=== PATIENT | male | born 1970 | race Caucasian/White ===

== ENCOUNTER 2019-02-18 12:30 | Emergency (ER) | payer BC ==
[2019-02-18] MEDS ORDERED: Iopamidol 755 Mg/ML 100 ML Bottle IVPUSH ONE (13:00)
[2019-02-18] MEDS ORDERED: Aspirin 81 MG Tab.Chew PO ONE (13:01)
[2019-02-18] MEDS ORDERED: Diltiazem 25 MG/5 ML SDV IVPUSH ONE ×2 (13:25→14:18)
[2019-02-18] MEDS ORDERED: Furosemide 40 MG/4 ML VIAL IVPUSH ONE (13:47)
[2019-02-18] MEDS ORDERED: Heparin Sodium 5,000 Units/ML Vial IVPUSH ONE (13:48)
--- NOTE | 2019-02-18 13:55 | EDM.PDOC ---
ED HPI GENERAL MEDICAL PROBLEM - General Chief Complaint: Cardiovascular Problem Stated Complaint: Hypoxia, sats in 50's from clinic Time Seen by Provider: 02/18/19 12:40 Source of Information: Reports: Patient, Family (7) History Limitations: Reports: Altered Mental Status, Physical Impairment ( Weight 375 pounds) - History of Present Illness INITIAL COMMENTS - FREE TEXT/NARRATIVE: Patient was transferred from the clinic to the ER secondary to not feeling well for about a week and a half to 2 patient's had sinusitis and was hypoxic in the clinic running saturations around 50 at that time they felt that he needed to be seen in the ER and transferred to the ER at this time patient was hypoxic somewhat confused he was placed on 100% rebreather patient in for evaluation and treatment Onset: Gradual Duration: Week(s):, Getting Worse Location: Reports: Chest Quality: Reports: Ache Severity: Moderate Improves with: Reports: None Worsens with: Reports: None Context: Reports: Other (Interval) Associated Symptoms: Reports: Confusion, Diaphoresis, Fever/Chills (Low-grade 100.7) Right Hip Pain Score (Numeric/FACES): 6 - Related Data Allergies Allergy/AdvReac Type Severity Reaction Status Date / Time apixaban [From Eliquis] Allergy Tachycardia Verified 02/18/19 12:32 rivaroxaban [From Xarelto] Allergy Tachycardia Verified 02/18/19 12:32 Home Meds: Home Meds Furosemide [Lasix] 20 mg PO DAILY 06/02/15 [History] Metoprolol Succinate [Toprol XL 50mg] 100 mg PO DAILY 06/02/15 [History] atorvaSTATin [Lipitor] 20 mg PO BEDTIME 06/02/15 [History] dilTIAZem HCl [Diltiazem 24Hr ER (Cd)] 180 mg PO DAILY 06/02/15 [History] traMADol [Ultram] 1 - 2 tab PO Q6H PRN 02/18/19 [History] Past Medical History Cardiovascular History: Reports: Blood Clots/VTE/DVT, High Cholesterol, Hypertension Other Respiratory History: Questioning possible pneumonia by provider Other Musculoskeletal History: C/o pain in the left foot, chronic-pain well managed - Past Surgical History Other HEENT Surgeries/Procedures: T&A, wisdom teeth removal Social & Family History - Tobacco Use Smoking Status *Q: Current Every Day Smoker Years of Tobacco use: 30 Packs/Tins Daily: 1 ED ROS GENERAL - Review of Systems Review Of Systems: See Below Constitutional: Reports: Weakness, Fatigue, Diaphoresis HEENT: Reports: No Symptoms Respiratory: Reports: Shortness of Breath, Wheezing ( with some wheezing), Other (Decreased breath sounds bilaterally left worse than right) Cardiovascular: Reports: Blood Pressure Problem, Lightheadedness, Palpitations ( Tachycardic) Endocrine: Reports: No Symptoms GI/Abdominal: Reports: No Symptoms : Reports: No Symptoms Musculoskeletal: Reports: No Symptoms Skin: Reports: Diaphoresis Neurological: Reports: Confusion Psychiatric: Reports: Anxiety, Confusion Hematologic/Lymphatic: Reports: No Symptoms Immunologic: Reports: No Symptoms ED EXAM, GENERAL - Physical Exam Exam: See Below Exam Limited By: Altered Mental Status General Appearance: Obese Ears: Normal External Exam, Normal Canal, Hearing Grossly Normal, Normal TMs Nose: Nasal Tenderness, Nasal Drainage Throat/Mouth: Normal Inspection, Normal Lips, Normal Teeth, Normal Gums, Normal Oropharynx, Normal Voice, No Airway Compromise Head: Atraumatic, Normocephalic Neck: Limited Range of Motion Respiratory/Chest: Decreased Breath Sounds (Left side decreased breath sounds), Rales (Right greater than left), Wheezing, Prolonged Expiration (Prolonged expiratory wheeze CT of chest reveal multi focal pneumonia no DVT) Cardiovascular: Normal Peripheral Pulses, Regular Rate, Rhythm, No Edema, No Gallop, No JVD, No Murmur, No Rub GI/Abdominal: Normal Bowel Sounds, Soft, Non-Tender, No Organomegaly, No Distention, No Abnormal Bruit, No Mass (Male) Exam: Scrotal Swelling, Other (Alfaro catheter placed) Rectal (Males) Exam: Deferred Back Exam: Decreased Range of Motion Extremities: Limited Range of Motion Neurological: Confused, Disoriented (On arrival) Skin Exam: Warm, Dry, Intact, Normal Color, No Rash Course - Vital Signs Last Recorded V/S: Last Vital Signs Temp 100.7 F H 02/18/19 12:30 Pulse 127 H 02/18/19 12:30 Resp 19 02/18/19 13:18 BP 167/109 H 02/18/19 13:18 Pulse Ox 87 L 02/18/19 13:18 - Orders/Labs/Meds Orders: Active Orders 24 hr Category Date Time Status Ang Chest [CT] Stat Exams 02/18/19 12:50 Ordered ABG [BLOOD GAS ARTERIAL] [BG] Routine Lab 02/18/19 13:49 Ordered CULTURE BLOOD [BC] Stat Lab 02/18/19 13:01 Ordered CULTURE BLOOD [BC] Stat Lab 02/18/19 13:01 Ordered Blood Culture x2 Reflex Set [OM.PC] Stat Oth 02/18/19 13:00 Ordered Blood Culture x2 Reflex Set [OM.PC] Stat Oth 02/18/19 13:10 Ordered Labs: Laboratory Tests 02/18/19 02/18/19 02/18/19 Range/Units 12:01 12:49 12:49 WBC 10.5 H (4.0-10.2) K/uL RBC 6.18 H (4.33-5.41) M/uL Hgb 17.4 H D (13.1-16.8) g/dL Hct 58.2 H (39.0-49.0) % MCV 94.2 (84.0-98.0) fL MCH 28.2 (28.2-33.3) pg MCHC 29.9 L (31.7-36.0) g/dL RDW 18.6 H (11.2-14.1) % Plt Count 282 (150-350) K/uL Neut % (Auto) 74.9 (45.0-80.0) % Lymph % (Auto) 13.8 (10.0-50.0) % [place] % (Auto) 9.8 (2.0-14.0) % Eos % (Auto) 1.0 (0.0-5.0) % Baso % (Auto) 0.5 (0.0-2.0) % Neut # (Auto) 7.84 H (1.40-7.00) K/uL Lymph # (Auto) 1.45 (0.50-3.50) K/uL [place] # (Auto) 1.03 H (0.00-1.00) K/uL Eos # (Auto) 0.11 (0.00-0.50) K/uL Baso # (Auto) 0.05 (0.00-0.20) K/uL PT (9.5-12.0) SEC INR D-Dimer, Quantitative 468 H (0-400) ng/mL Sodium (136-145) mmol/L Potassium (3.5-5.1) mmol/L Chloride (98-107) mmol/L Carbon Dioxide (21.0-32.0) mmol/L BUN (7-18) mg/dL Creatinine (0.51-1.17) mg/dL Est Cr Clr Drug Dosing mL/min Estimated GFR (MDRD) mL/min Glucose (74-106) mg/dL Lactic Acid 2.8 H (0.4-2.0) mmol/L Calcium (8.5-10.1) mg/dL Total Bilirubin (0.2-1.0) mg/dL AST (15-37) U/L ALT (12-78) U/L Alkaline Phosphatase (46-116) IU/L Troponin I (0.000-0.056) ng/mL NT-Pro-B Natriuret Pep (0-125) pg/mL Total Protein (6.4-8.2) g/dL Albumin (3.4-5.0) g/dL 02/18/19 02/18/19 Range/Units 12:49 13:01 WBC (4.0-10.2) K/uL RBC (4.33-5.41) M/uL Hgb (13.1-16.8) g/dL Hct (39.0-49.0) % MCV (84.0-98.0) fL MCH (28.2-33.3) pg MCHC (31.7-36.0) g/dL RDW (11.2-14.1) % Plt Count (150-350) K/uL Neut % (Auto) (45.0-80.0) % Lymph % (Auto) (10.0-50.0) % [place] % (Auto) (2.0-14.0) % Eos % (Auto) (0.0-5.0) % Baso % (Auto) (0.0-2.0) % Neut # (Auto) (1.40-7.00) K/uL Lymph # (Auto) (0.50-3.50) K/uL [place] # (Auto) (0.00-1.00) K/uL Eos # (Auto) (0.00-0.50) K/uL Baso # (Auto) (0.00-0.20) K/uL PT 13.3 H (9.5-12.0) SEC INR 1.2 D-Dimer, Quantitative (0-400) ng/mL Sodium 140 (136-145) mmol/L Potassium 4.2 (3.5-5.1) mmol/L Chloride 102 (98-107) mmol/L Carbon Dioxide 33.3 H (21.0-32.0) mmol/L BUN 26 H (7-18) mg/dL Creatinine 1.36 H (0.51-1.17) mg/dL Est Cr Clr Drug Dosing 70.75 mL/min Estimated GFR (MDRD) 56 mL/min Glucose 117 H (74-106) mg/dL Lactic Acid (0.4-2.0) mmol/L Calcium 8.5 (8.5-10.1) mg/dL Total Bilirubin 2.1 H (0.2-1.0) mg/dL AST 25 (15-37) U/L ALT 34 (12-78) U/L Alkaline Phosphatase 92 (46-116) IU/L Troponin I 0.034 (0.000-0.056) ng/mL NT-Pro-B Natriuret Pep 3868 H (0-125) pg/mL Total Protein 6.8 (6.4-8.2) g/dL Albumin 2.8 L (3.4-5.0) g/dL Meds: Medications Discontinued Medications Generic Name Dose Route Start Last Admin Trade Name Abdullahiq PRN Reason Stop Dose Admin Aspirin 324 mg 02/18/19 13:01 02/18/19 13:38 Aspirin PO 02/18/19 13:02 324 mg ONETIME ONE Administration Diltiazem HCl 20 mg 02/18/19 13:25 02/18/19 13:38 Diltiazem IVPUSH 02/18/19 13:26 20 mg ONETIME ONE Administration Furosemide 40 mg 02/18/19 13:47 Lasix IVPUSH 02/18/19 13:48 NOW ONE Heparin Sodium (Porcine) 5,000 units 02/18/19 13:48 Heparin Sodium IVPUSH 02/18/19 13:49 ONETIME ONE Iopamidol 100 ml 02/18/19 13:00 Isovue-370 (76%) IVPUSH 02/18/19 13:01 ONETIME ONE Departure - Departure Time of Disposition: 15:14 Disposition: DC/Tfer to Acute Hospital 02 Reason for Transfer *Q: Other (Pneumonia pneumonia pneumonia pneumonia) Condition: Serious Clinical Impression: Tachycardia, Palpitations, Obesities, morbid, Multifocal pneumonia Referrals: Nara Lozoya PA [Primary Care Provider] - Care Plan Goals: ED HPI GENERAL MEDICAL PROBLEM - General Chief Complaint: Cardiovascular Problem Stated Complaint: Hypoxia, sats in 50's from clinic Time Seen by Provider: 02/18/19 12:40 Source of Information: Reports: Patient, Family (7) History Limitations: Reports: Altered Mental Status, Physical Impairment ( Weight 375 pounds) - History of Present Illness INITIAL COMMENTS - FREE TEXT/NARRATIVE: Patient was transferred from the clinic to the ER secondary to not feeling well for about a week and a half to 2 patient's had sinusitis and was hypoxic in the clinic running saturations around 50 at that time they felt that he needed to be seen in the ER and transferred to the ER at this time patient was hypoxic somewhat confused he was placed on 100% rebreather patient in for evaluation and treatment Onset: Gradual Duration: Week(s):, Getting Worse Location: Reports: Chest Quality: Reports: Ache Severity: Moderate Improves with: Reports: None Worsens with: Reports: None Context: Reports: Other (Interval) Associated Symptoms: Reports: Confusion, Diaphoresis, Fever/Chills (Low-grade 100.7) Right Hip Pain Score (Numeric/FACES): 6 - Related Data Allergies Allergy/AdvReac Type Severity Reaction Status Date / Time apixaban [From Eliquis] Allergy Tachycardia Verified 02/18/19 12:32 rivaroxaban [From Xarelto] Allergy Tachycardia Verified 02/18/19 12:32 Home Meds: Home Meds Furosemide [Lasix] 20 mg PO DAILY 06/02/15 [History] Metoprolol Succinate [Toprol XL 50mg] 100 mg PO DAILY 06/02/15 [History] atorvaSTATin [Lipitor] 20 mg PO BEDTIME 06/02/15 [History] dilTIAZem HCl [Diltiazem 24Hr ER (Cd)] 180 mg PO DAILY 06/02/15 [History] traMADol [Ultram] 1 - 2 tab PO Q6H PRN 05/14/19 [History] Past Medical History Cardiovascular History: Reports: Blood Clots/VTE/DVT, High Cholesterol, Hypertension Other Respiratory History: Questioning possible pneumonia by provider Other Musculoskeletal History: C/o pain in the left foot, chronic-pain well managed - Past Surgical History Other HEENT Surgeries/Procedures: T&A, wisdom teeth removal Social & Family History - Tobacco Use Smoking Status *Q: Current Every Day Smoker Years of Tobacco use: 30 Packs/Tins Daily: 1 ED ROS GENERAL - Review of Systems Review Of Systems: See Below Constitutional: Reports: Weakness, Fatigue, Diaphoresis HEENT: Reports: No Symptoms Respiratory: Reports: Shortness of Breath, Wheezing ( with some wheezing), Other (Decreased breath sounds bilaterally left worse than right) Cardiovascular: Reports: Blood Pressure Problem, Lightheadedness, Palpitations ( Tachycardic) Endocrine: Reports: No Symptoms GI/Abdominal: Reports: No Symptoms : Reports: No Symptoms Musculoskeletal: Reports: No Symptoms Skin: Reports: Diaphoresis Neurological: Reports: Confusion Psychiatric: Reports: Anxiety, Confusion Hematologic/Lymphatic: Reports: No Symptoms Immunologic: Reports: No Symptoms ED EXAM, GENERAL - Physical Exam Exam Limited By: Altered Mental Status General Appearance: Obese Ears: Normal External Exam, Normal Canal, Hearing Grossly Normal, Normal TMs Nose: Nasal Tenderness, Nasal Drainage Throat/Mouth: Normal Inspection, Normal Lips, Normal Teeth, Normal Gums, Normal Oropharynx, Normal Voice, No Airway Compromise Head: Atraumatic, Normocephalic Neck: Limited Range of Motion Respiratory/Chest: Decreased Breath Sounds (Left side decreased breath sounds), Rales (Right greater than left), Wheezing, Prolonged Expiration (Prolonged expiratory wheeze CT of chest reveal multi focal pneumonia no DVT) Cardiovascular: Normal Peripheral Pulses, Regular Rate, Rhythm, No Edema, No Gallop, No JVD, No Murmur, No Rub GI/Abdominal: Normal Bowel Sounds, Soft, Non-Tender, No Organomegaly, No Distention, No Abnormal Bruit, No Mass (Male) Exam: Scrotal Swelling, Other (Alfaro catheter placed) Rectal (Males) Exam: Deferred Back Exam: Decreased Range of Motion Extremities: Limited Range of Motion Neurological: Confused, Disoriented (On arrival) Skin Exam: Warm, Dry, Intact, Normal Color, No Rash Course - Vital Signs Last Recorded V/S: Last Vital Signs Temp 100.7 F H 05/14/19 12:30 Pulse 127 H 02/18/19 12:30 Resp 19 02/18/19 13:18 BP 167/109 H 02/18/19 13:18 Pulse Ox 87 L 02/18/19 13:18 - Orders/Labs/Meds Orders: Active Orders 24 hr Category Date Time Status Ang Chest [CT] Stat Exams 02/18/19 12:50 Ordered ABG [BLOOD GAS ARTERIAL] [BG] Routine Lab 02/18/19 13:49 Ordered CULTURE BLOOD [BC] Stat Lab 02/18/19 13:01 Ordered CULTURE BLOOD [BC] Stat Lab 02/18/19 13:01 Ordered Blood Culture x2 Reflex Set [OM.PC] Stat Oth 02/18/19 13:00 Ordered Blood Culture x2 Reflex Set [OM.PC] Stat Oth 02/18/19 13:10 Ordered Labs: Laboratory Tests 02/18/19 02/18/19 02/18/19 Range/Units 12:01 12:49 12:49 WBC 10.5 H (4.0-10.2) K/uL RBC 6.18 H (4.33-5.41) M/uL Hgb 17.4 H D (13.1-16.8) g/dL Hct 58.2 H (39.0-49.0) % MCV 94.2 (84.0-98.0) fL MCH 28.2 (28.2-33.3) pg MCHC 29.9 L (31.7-36.0) g/dL RDW 18.6 H (11.2-14.1) % Plt Count 282 (150-350) K/uL Neut % (Auto) 74.9 (45.0-80.0) % Lymph % (Auto) 13.8 (10.0-50.0) % [place] % (Auto) 9.8 (2.0-14.0) % Eos % (Auto) 1.0 (0.0-5.0) % Baso % (Auto) 0.5 (0.0-2.0) % Neut # (Auto) 7.84 H (1.40-7.00) K/uL Lymph # (Auto) 1.45 (0.50-3.50) K/uL [place] # (Auto) 1.03 H (0.00-1.00) K/uL Eos # (Auto) 0.11 (0.00-0.50) K/uL Baso # (Auto) 0.05 (0.00-0.20) K/uL PT (9.5-12.0) SEC INR D-Dimer, Quantitative 468 H (0-400) ng/mL Sodium (136-145) mmol/L Potassium (3.5-5.1) mmol/L Chloride (98-107) mmol/L Carbon Dioxide (21.0-32.0) mmol/L BUN (7-18) mg/dL Creatinine (0.51-1.17) mg/dL Est Cr Clr Drug Dosing mL/min Estimated GFR (MDRD) mL/min Glucose (74-106) mg/dL Lactic Acid 2.8 H (0.4-2.0) mmol/L Calcium (8.5-10.1) mg/dL Total Bilirubin (0.2-1.0) mg/dL AST (15-37) U/L ALT (12-78) U/L Alkaline Phosphatase (46-116) IU/L Troponin I (0.000-0.056) ng/mL NT-Pro-B Natriuret Pep (0-125) pg/mL Total Protein (6.4-8.2) g/dL Albumin (3.4-5.0) g/dL 02/18/19 02/18/19 Range/Units 12:49 13:01 WBC (4.0-10.2) K/uL RBC (4.33-5.41) M/uL Hgb (13.1-16.8) g/dL Hct (39.0-49.0) % MCV (84.0-98.0) fL MCH (28.2-33.3) pg MCHC (31.7-36.0) g/dL RDW (11.2-14.1) % Plt Count (150-350) K/uL Neut % (Auto) (45.0-80.0) % Lymph % (Auto) (10.0-50.0) % [place] % (Auto) (2.0-14.0) % Eos % (Auto) (0.0-5.0) % Baso % (Auto) (0.0-2.0) % Neut # (Auto) (1.40-7.00) K/uL Lymph # (Auto) (0.50-3.50) K/uL [place] # (Auto) (0.00-1.00) K/uL Eos # (Auto) (0.00-0.50) K/uL Baso # (Auto) (0.00-0.20) K/uL PT 13.3 H (9.5-12.0) SEC INR 1.2 D-Dimer, Quantitative (0-400) ng/mL Sodium 140 (136-145) mmol/L Potassium 4.2 (3.5-5.1) mmol/L Chloride 102 (98-107) mmol/L Carbon Dioxide 33.3 H (21.0-32.0) mmol/L BUN 26 H (7-18) mg/dL Creatinine 1.36 H (0.51-1.17) mg/dL Est Cr Clr Drug Dosing 70.75 mL/min Estimated GFR (MDRD) 56 mL/min Glucose 117 H (74-106) mg/dL Lactic Acid (0.4-2.0) mmol/L Calcium 8.5 (8.5-10.1) mg/dL Total Bilirubin 2.1 H (0.2-1.0) mg/dL AST 25 (15-37) U/L ALT 34 (12-78) U/L Alkaline Phosphatase 92 (46-116) IU/L Troponin I 0.034 (0.000-0.056) ng/mL NT-Pro-B Natriuret Pep 3868 H (0-125) pg/mL Total Protein 6.8 (6.4-8.2) g/dL Albumin 2.8 L (3.4-5.0) g/dL Meds: Medications Discontinued Medications Generic Name Dose Route Start Last Admin Trade Name Freq PRN Reason Stop Dose Admin Aspirin 324 mg 02/18/19 13:01 02/18/19 13:38 Aspirin PO 02/18/19 13:02 324 mg ONETIME ONE Administration Diltiazem HCl 20 mg 02/18/19 13:25 02/18/19 13:38 Diltiazem IVPUSH 02/18/19 13:26 20 mg ONETIME ONE Administration Furosemide 40 mg 02/18/19 13:47 Lasix IVPUSH 02/18/19 13:48 NOW ONE Heparin Sodium (Porcine) 5,000 units 02/18/19 13:48 Heparin Sodium IVPUSH 02/18/19 13:49 ONETIME ONE Iopamidol 100 ml 02/18/19 13:00 Isovue-370 (76%) IVPUSH 02/18/19 13:01 ONETIME ONE Departure - Departure Disposition: DC/Tfer to Acute Hospital 02 Preliminary Cause of *Q: Sepsis & Multi System Organ Failure Clinical Impression: Tachycardia, Palpitations, Obesities, morbid, Multifocal pneumonia Referrals: Nara Lozoya PA [Primary Care Provider] - - My Orders Last 24 Hours: My Active Orders 02/18/19 12:50 Ang Chest [CT] Stat 02/18/19 13:00 Blood Culture x2 Reflex Set [OM.PC] Stat 02/18/19 13:01 CULTURE BLOOD [BC] Stat CULTURE BLOOD [BC] Stat 02/18/19 13:10 Blood Culture x2 Reflex Set [OM.PC] Stat 02/18/19 13:49 ABG [BLOOD GAS ARTERIAL] [BG] Routine - Assessment/Plan Last 24 Hours: My Active Orders 02/18/19 12:50 Ang Chest [CT] Stat 02/18/19 13:00 Blood Culture x2 Reflex Set [OM.PC] Stat 02/18/19 13:01 CULTURE BLOOD [BC] Stat CULTURE BLOOD [BC] Stat 02/18/19 13:10 Blood Culture x2 Reflex Set [OM.PC] Stat 02/18/19 13:49 ABG [BLOOD GAS ARTERIAL] [BG] Routine Patient was stabilized in the ER placed on 100% rebreather at this time CT of the chest was done revealed no PE I went ahead and discussed transfer with patient spoke with dr. diez at [place] and will transfer to ICU. Prior to departure patient was given Lasix 40 mg +5000 units of heparin diltiazem 20 mg follow 25-hour later for to control rate and improve cardiac output Alfaro placed at this time I thought about intubating a sense patient is not in distress I think attempt at intubation at this time would be worse than transfer him. - My Orders Last 24 Hours: My Active Orders 02/18/19 12:50 Ang Chest [CT] Stat 02/18/19 13:00 Blood Culture x2 Reflex Set [OM.PC] Stat 02/18/19 13:01 CULTURE BLOOD [BC] Stat CULTURE BLOOD [BC] Stat 02/18/19 13:10 Blood Culture x2 Reflex Set [OM.PC] Stat 02/18/19 13:49 ABG [BLOOD GAS ARTERIAL] [BG] Routine - Assessment/Plan Last 24 Hours: My Active Orders 02/18/19 12:50 Ang Chest [CT] Stat 02/18/19 13:00 Blood Culture x2 Reflex Set [OM.PC] Stat 02/18/19 13:01 CULTURE BLOOD [BC] Stat CULTURE BLOOD [BC] Stat 02/18/19 13:10 Blood Culture x2 Reflex Set [OM.PC] Stat 02/18/19 13:49 ABG [BLOOD GAS ARTERIAL] [BG] Routine
[2019-02-18] MEDS ORDERED: Levofloxacin/Dextrose 5%-Water 750 MG in Premix Bag 1 BAG IV ONE (14:04)
[2019-02-18] MEDS ORDERED: Piperacillin/Tazobactam 4.5 GM in Sodium Chloride 0.9% 100 ML IV SCH (14:15)
[2019-02-18 15:03] VITALS: BP 121/88
== END 2019-02-18 15:40 ==
LOC: LL.ED 12:30
DX: J18.9 Pneumonia, unspecified organism (principal); R00.2 Palpitations; R00.0 Tachycardia, unspecified; I10 Essential (primary) hypertension; E66.01 Morbid (severe) obesity due to excess calories; F17.210 Nicotine dependence, cigarettes, uncomplicated; Z79.899 Other long term (current) drug therapy; Z88.8 Allergy status to other drugs, medicaments and biological substances
CPT/HCPCS: 36415; 51702; 71275; 80053; 83605; 83880; 84484; 85025; 85379; 85610; 87040; 96365; 96368; 96375; 96376; 99285-25; A4217; A9270-GY; J1644; J1940; J1956; J2543; J3490; J7050; Q9967

== ENCOUNTER 2019-06-11 13:34 | Inpatient (IN) | payer BC ==
[2019-06-11] MEDS ORDERED: Albuterol/Ipratropium 3.0-0.5 MG/3 ML Neb Soln NEB ONE (13:37)
[2019-06-11] MEDS ORDERED: methylPREDNISolone Sodium Succinate 125 MG/2 ML SDV IVPUSH ONE ×3 (13:37→22:00)
[2019-06-11] MEDS: Sodium Chloride 0.9% 10 ML Syringe FLUSH PRN ×5 (13:54→21:34)
[2019-06-11 14:05] LABS: O2 DELIVERY DEVICE ROOM AIR; O2 SATURATION ARTERIAL 82 % (95-98); PCO2 ARTERIAL 41 mmHG (35-45); PO2 ARTERIAL 44 mmHG (80-105)
[2019-06-11 14:06] LABS: BASE EXCESS ARTERIAL 4 mmol/L (-2-3); BICARBONATE,ARTERIAL 28.5 mmol/L (22-26)
[2019-06-11] MEDS ORDERED: Iopamidol 612 MG/ML 100 ML Bottle IVPUSH ONE (14:52)
[2019-06-11] MEDS ORDERED: Acetaminophen 325 MG Tab PO PRN (16:52)
[2019-06-11] MEDS ORDERED: Ibuprofen 600 MG Tab PO PRN (16:52)
[2019-06-11] MEDS ORDERED: Ondansetron 4 MG Tab.DIS PO PRN (16:52)
[2019-06-11] MEDS ORDERED: Ondansetron 4 MG/2 ML SDV IVPUSH PRN (16:52)
[2019-06-11] MEDS ORDERED: Albuterol 0.083% 2.5 MG/3 ML Neb Soln NEB PRN (16:59)
--- NOTE | 2019-06-11 17:13 | EDM.PDOC ---
ED HPI GENERAL MEDICAL PROBLEM - General Chief Complaint: Respiratory Problem Stated Complaint: shortness of breath Time Seen by Provider: 06/11/19 14:05 Source of Information: Reports: Patient, Provider History Limitations: Reports: No Limitations - History of Present Illness INITIAL COMMENTS - FREE TEXT/NARRATIVE: Patient sent [place] [facility] [place] of reactive airway disease exacerbation/COPD that has not improved despite neb treatments at home in addition to oral Prednisone. Patient reports having symptoms begin about two weeks ago. No obvious viral/infectious trigger. Patient thought that environmental allergies may have been initiating event. He denies fever/ chills. Has nonproductive cough. Wheezing, SOB with activity. No other changes. Smoked one year many years ago. Patient had similar episode last February that ultimately led to respiratory failure and transfer to [facility] where he required intubation and ICU care. Treatments [employer]ER: Reports: Breathing Treatments, NSAIDS - Related Data Allergies Allergy/AdvReac Type Severity Reaction Status Date / Time apixaban [From Eliquis] Allergy Tachycardia Verified 06/11/19 13:52 rivaroxaban [From Xarelto] Allergy Tachycardia Verified 06/11/19 13:52 Home Meds: Home Meds Furosemide [Lasix] 40 mg PO DAILY 06/02/15 [History] atorvaSTATin [Lipitor] 20 mg PO BEDTIME 06/02/15 [History] Aspirin [Halfprin] 1 tab PO DAILY 06/11/19 [History] Budesonide [Pulmicort] 2 ml INH DAILY 06/11/19 [History] Cetirizine [ZyrTEC] 1 tab PO DAILY 06/11/19 [History] Cholecalciferol (Vitamin D3) [Vitamin D3] 2 tab PO DAILY 06/11/19 [History] Ipratropium/Albuterol Sulfate [Iprat-Albut 0.5-3(2.5) MG/3 ML] 3 ml INH DAILY [History] Melatonin 6 mg PO BEDTIME 06/11/19 [History] Metoprolol Tartrate 100 mg PO BID 06/11/19 [History] Omeprazole 20 mg PO DAILY 06/11/19 [History] Past Medical History Cardiovascular History: Reports: Blood Clots/VTE/DVT, High Cholesterol, Hypertension, Pulmonary Hypertension Respiratory History: Reports: COPD, Intubation, Previous (due to acute respiratory failure) Gastrointestinal History: Reports: GERD, Other (See Below) (ileus) Musculoskeletal History: Reports: Osteoarthritis Other Musculoskeletal History: C/o pain in the left foot, chronic-pain well managed - Past Surgical History Other HEENT Surgeries/Procedures: T&A, wisdom teeth removal Social & Family History - Tobacco Use Smoking Status *Q: Former Smoker (Smoked one year when young, then subsequently quit) - Caffeine Use Caffeine Use: Reports: Coffee, Soda Other Caffeine Use: pop- 3x/day, coffee 12 cups per day - Alcohol Use Alcohol Use History: Yes Alcohol Use Frequency: Weekly - Recreational Drug Use Recreational Drug Use: No ED ROS GENERAL - Review of Systems Review Of Systems: See Below Constitutional: Reports: Fatigue (when walking). Denies: Fever, Chills, Weakness, Night Sweats, Diaphoresis, Decreased Appetite, Weight Loss, Weight Gain HEENT: Reports: No Symptoms Respiratory: Reports: Shortness of Breath, Wheezing, Cough. Denies: Pleuritic Chest Pain, Sputum, Hemoptysis Cardiovascular: Reports: Dyspnea on Exertion, Edema (chronic). Denies: Chest Pain, Lightheadedness, Syncope GI/Abdominal: Reports: No Symptoms : Reports: No Symptoms Musculoskeletal: Reports: Other (no acute changes from baseline) Skin: Reports: Other (has some chronic discoloration lower extremities from chronic edema) Neurological: Reports: No Symptoms Psychiatric: Reports: No Symptoms ED EXAM, GENERAL - Physical Exam Exam: See Below Exam Limited By: No Limitations General Appearance: Alert, No Apparent Distress, Obese Eye Exam: Bilateral Eye: EOMI, PERRL Ears: Normal External Exam Nose: No: Nasal Deformity, Nasal Swelling, Nasal Drainage Throat/Mouth: Normal Lips, Normal Voice, No Airway Compromise Head: Atraumatic, Normocephalic Neck: Supple, Full Range of Motion Respiratory/Chest: No Respiratory Distress, Wheezing (bilaterally). No: Crackles, Rales Cardiovascular: Normal Peripheral Pulses, Regular Rate, Rhythm, No Murmur Peripheral Pulses: 2+: Radial (L), Radial (R) GI/Abdominal: Normal Bowel Sounds, Soft, Non-Tender, No Distention (Male) Exam: Deferred Rectal (Males) Exam: Deferred Back Exam: No: CVA Tenderness (L), CVA Tenderness (R), Muscle Spasm, Paraspinal Tenderness, Vertebral Tenderness Extremities: Non-Tender, Normal Capillary Refill, Pedal Edema. No: Matias's Sign Neurological: Alert, Oriented, Normal Cognition, No Motor/Sensory Deficits Psychiatric: Normal Affect, Normal Mood Skin Exam: Warm, Dry, Intact. No: Mottled, Pallor Course - Vital Signs Last Recorded V/S: Last Vital Signs Temp 36.8 C 06/11/19 13:45 Pulse 73 06/11/19 14:30 Resp 18 06/11/19 14:30 BP 140/91 H 06/11/19 14:30 Pulse Ox 93 L 06/11/19 16:15 - Orders/Labs/Meds Orders: Active Orders 24 hr Category Date Time Status RT Aerosol Therapy [RC] ASDIRECTED Care 06/11/19 13:37 Active Chest w Cont [CT] Stat Exams 06/11/19 14:49 Taken Sodium Chloride 0.9% [Saline Flush] Med 06/11/19 13:38 Active 10 ml FLUSH ASDIRECTED PRN Saline Lock Insert [OM.PC] Routine Oth 06/11/19 13:38 Ordered Medication Orders Acetaminophen (Tylenol) 650 mg PO Q4H PRN PRN Reason: Pain (Mild 1-3)/fever Albuterol (Proventil Neb Soln) 2.5 mg NEB Q2H PRN PRN Reason: Shortness of Breath Albuterol/Ipratropium (Duoneb 3.0-0.5 Mg/3 Ml) 3 ml NEB Q4HRRT [facility] Enoxaparin Sodium (Lovenox) 40 mg SUBCUT DAILY [facility] Azithromycin 500 mg/ Sodium (Chloride) 250 mls @ 250 mls/hr IV Q24H [facility] Ibuprofen (Motrin) 600 mg PO Q6H PRN PRN Reason: Pain (mild 1-3) Methylprednisolone Sodium Succinate (Solu-Medrol) 125 mg IVPUSH DAILY [facility] Methylprednisolone Sodium Succinate (Solu-Medrol) 125 mg IVPUSH ONETIME ONE Stop: 06/11/19 22:01 Methylprednisolone Sodium Succinate (Solu-Medrol) 125 mg IVPUSH ONETIME ONE Stop: 06/11/19 22:01 Ondansetron HCl (Zofran Odt) 4 mg PO Q6H PRN PRN Reason: Nausea/Vomiting Ondansetron HCl (Zofran) 4 mg IVPUSH Q6H PRN PRN Reason: Nausea/Vomiting Sodium Chloride (Saline Flush) 10 ml FLUSH ASDIRECTED PRN PRN Reason: Keep Vein Open Last Admin: 06/11/19 13:54 Dose: 10 ml Labs: Laboratory Tests 06/11/19 06/11/19 06/11/19 Range/Units 12:42 12:42 14:00 ABG pH 7.45 (7.35-7.45) ABG pCO2 41 (35-45) mmHG ABG pO2 44 L* (80-105) mmHG ABG HCO3 28.5 H (22-26) mmol/L ABG Total CO2 30 H (23-27) mmol/L ABG O2 Saturation 82 L (95-98) % ABG Base Excess 4 H (-2-3) mmol/L O2 Delivery Device Room air Lactic Acid 1.8 (0.4-2.0) mmol/L Magnesium 1.8 (1.8-2.4) mg/dL Meds: Medications Generic Name Dose Route Start Last Admin Trade Name Freq PRN Reason Stop Dose Admin Acetaminophen 650 mg 06/11/19 16:52 Tylenol PO Q4H PRN Pain (Mild 1-3)/fever Albuterol 2.5 mg 06/11/19 16:59 Proventil Neb Soln NEB Q2H PRN Shortness of Breath Albuterol/Ipratropium 3 ml 06/11/19 20:00 Duoneb 3.0-0.5 Mg/3 Ml NEB Q4HRRT [facility] Enoxaparin Sodium 40 mg 06/12/19 08:00 Lovenox SUBCUT DAILY [facility] Azithromycin 500 mg/ Sodium 250 mls @ 250 mls/hr 06/11/19 17:00 Chloride IV Q24H [facility] Ibuprofen 600 mg 06/11/19 16:52 Motrin PO Q6H PRN Pain (mild 1-3) Methylprednisolone Sodium Succinate 125 mg 06/12/19 08:00 Solu-Medrol IVPUSH DAILY [facility] Methylprednisolone Sodium Succinate 125 mg 06/11/19 22:00 Solu-Medrol IVPUSH 06/11/19 22:01 ONETIME ONE Methylprednisolone Sodium Succinate 125 mg 06/11/19 22:00 Solu-Medrol IVPUSH 06/11/19 22:01 ONETIME ONE Ondansetron HCl 4 mg 06/11/19 16:52 Zofran Odt PO Q6H PRN Nausea/Vomiting Ondansetron HCl 4 mg 06/11/19 16:52 Zofran IVPUSH Q6H PRN Nausea/Vomiting Sodium Chloride 10 ml 06/11/19 13:38 06/11/19 13:54 Saline Flush FLUSH 10 ml ASDIRECTED PRN Administration Keep Vein Open Discontinued Medications Generic Name Dose Route Start Last Admin Trade Name Freq PRN Reason Stop Dose Admin Albuterol/Ipratropium 3 ml 06/11/19 13:37 06/11/19 13:54 Duoneb 3.0-0.5 Mg/3 Ml NEB 06/11/19 13:38 3 ml ONETIME ONE Administration Iopamidol 100 ml 06/11/19 14:52 06/11/19 15:52 Isovue-300 (61%) IVPUSH 06/11/19 14:53 100 ml ONETIME ONE Administration Methylprednisolone Sodium Succinate 125 mg 06/11/19 13:37 06/11/19 13:54 Solu-Medrol IVPUSH 06/11/19 13:38 125 mg ONETIME ONE Administration - Radiology Interpretation Free Text/Narrative:: Xray taken by clinic showed changes consistent with COPD/atelectasis but no obvious new infiltrate noted. Review of patient's CT report from February showed that diffuse changes/pneumonias noted at that time and recommended second CT be performed within 2-3 months to make certain these findings had cleared. CT of chest ordered. Radiology reviewed this and compared it to February CT. No infiltrates/pneumonia noted. No PE. Atelectasis identified. No other acute findings noted. - Re-Assessments/Exams Free Text/Narrative Re-Assessment/Exam: Patient given neb shortly after arrival . Improved sats/wheezing noted afterward. Vital signs stable, O2 sats on room air around 92-94%. ABG performed but was likely mixed with venous blood. Patient not redrawn. Chem overall unremarkable. Low normal Mg. Normal lactic acid. WBC normal. Normal A1C and DDimer. ProBNP elevated to over 3000. No history of CHF noted. Patient admitted to floor for further evaluation and care of exacerbation of reactive airway disease/COPD once CT reading was available. No focal pneumonia identified as contributing to lung complaint Departure - Departure Time of Disposition: 17:15 Disposition: Admitted As Inpatient 66 Clinical Impression: Reactive airway disease with acute exacerbation Qualifiers: Asthma severity: moderate Asthma persistence: persistent Qualified Code(s): J45.41 - Moderate persistent asthma with (acute) exacerbation - Discharge Information *PRESCRIPTION DRUG MONITORING PROGRAM REVIEWED*: Not Applicable *COPY OF PRESCRIPTION DRUG MONITORING REPORT IN PATIENT GRISELDA: Not Applicable - Problem List & Annotations (1) Reactive airway disease with acute exacerbation SNOMED Code(s): 291778355188 Code(s): J45.901 - UNSPECIFIED ASTHMA WITH (ACUTE) EXACERBATION Status: Acute Priority: High Current Visit: Yes Onset Date: ~05/28/19 Annotation /Comment:: Unknown trigger. May be due to environmental allergies. No focal pneumonia identified. Due to persistence of symptoms will cover patient with Zithromax which also can have anti-inflammatory effect. Solu-medrol IV given in ER. Will continue aggressive nebulizer treatments. Qualifiers: Asthma severity: moderate Asthma persistence: persistent Qualified Code(s ): J45.41 - Moderate persistent asthma with (acute) exacerbation (2) Hypertension SNOMED Code(s): 76654740 Code(s): I10 - ESSENTIAL (PRIMARY) HYPERTENSION Status: Chronic Priority : Low Current Visit: No Annotation/Comment:: Observe trends as inpatient Qualifiers: Hypertension type: essential hypertension Qualified Code(s): I10 - Essential (primary) hypertension (3) Dyslipidemia SNOMED Code(s): 650544262 Code(s): E78.5 - HYPERLIPIDEMIA, UNSPECIFIED Status: Chronic Priority: Low Current Visit: No Annotation/Comment:: To follow up with primary provider (4) Obesities, morbid SNOMED Code(s): 445154551 Code(s): E66.01 - MORBID (SEVERE) OBESITY DUE TO EXCESS CALORIES Status: Chronic Priority: Medium Current Visit: Yes Annotation/Comment:: Encouraged patient to adopt better lifestyle and eating habits to lower chronic inflammation and improve his multiple chronic medical conditions. (5) GERD (gastroesophageal reflux disease) SNOMED Code(s): 123690651 Code(s): K21.9 - GASTRO-ESOPHAGEAL REFLUX DISEASE WITHOUT ESOPHAGITIS Status: Chronic Priority: Low Current Visit: No Annotation/Comment:: Stable per patient. IV Protonix ordered. Qualifiers: Esophagitis presence: esophagitis presence not specified Qualified Code(s) : K21.9 - Gastro-esophageal reflux disease without esophagitis (6) Osteoarthritis SNOMED Code(s): 235712787 Code(s): M19.90 - UNSPECIFIED OSTEOARTHRITIS, UNSPECIFIED SITE Status: Chronic Priority: Low Current Visit: No Annotation/Comment:: stable per patient Qualifiers: Osteoarthritis location: multiple joints Osteoarthritis type: unspecified Qualified Code(s): M15.9 - Polyosteoarthritis, unspecified - Problem List Review Problem List Initiated/Reviewed/Updated: Yes - My Orders Last 24 Hours: My Active Orders 06/11/19 13:37 RT Aerosol Therapy [RC] ASDIRECTED 06/11/19 13:38 Sodium Chloride 0.9% [Saline Flush] 10 ml FLUSH ASDIRECTED PRN Saline Lock Insert [OM.PC] Routine 06/11/19 14:49 Chest w Cont [CT] Stat - Assessment/Plan Admission H&P: Please use this note as an admission H&P Last 24 Hours: My Active Orders 06/11/19 13:37 RT Aerosol Therapy [RC] ASDIRECTED 06/11/19 13:38 Sodium Chloride 0.9% [Saline Flush] 10 ml FLUSH ASDIRECTED PRN Saline Lock Insert [OM.PC] Routine 06/11/19 14:49 Chest w Cont [CT] Stat Assessment:: as above Plan: as above. Anticipate 3-4 day stay inpatient depending on patient's clinical course. Patient's care to be assumed by in AM.
[2019-06-11 17:14] LABS: HEMOGLOBIN A1C 5.1 % (4.3-5.7)
[2019-06-11] MEDS: Azithromycin 500 MG in Sodium Chloride 0.9% 250 ML IV SCH (17:27)
[2019-06-11] MEDS ORDERED: Furosemide 20 MG/2 ML VIAL IVPUSH ONE (17:33)
[2019-06-11] MEDS: Metoprolol Tartrate 50 MG Tab PO SCH (18:00)
[2019-06-11] MEDS: Magnesium Oxide 400 MG Tab PO SCH (18:01)
[2019-06-11] MEDS: Pantoprazole 40 MG Vial IVPUSH SCH (18:01)
[2019-06-11] MEDS: Albuterol/Ipratropium 3.0-0.5 MG/3 ML Neb Soln NEB SCH (20:13)
[2019-06-11] MEDS: Melatonin 3 MG Tab PO SCH (20:14)
[2019-06-12] MEDS: Albuterol/Ipratropium 3.0-0.5 MG/3 ML Neb Soln NEB SCH ×7 (00:34→23:59)
[2019-06-12 07:43] LABS: CHLORIDE,CL 104 mmol/L (98-107); SODIUM,NA 142 mmol/L (136-145)
[2019-06-12] MEDS: Magnesium Oxide 400 MG Tab PO SCH (07:46)
[2019-06-12] MEDS: Aspirin 81 MG Tab.EC PO SCH (07:46)
[2019-06-12] MEDS: Cetirizine 10 MG Tab PO SCH (07:46)
[2019-06-12] MEDS: Furosemide 20 MG/2 ML VIAL IVPUSH SCH (07:47)
[2019-06-12] MEDS: Metoprolol Tartrate 50 MG Tab PO SCH ×2 (07:47→17:00)
[2019-06-12] MEDS: Enoxaparin 40 MG/0.4 ML Syringe SUBCUT SCH (07:47)
[2019-06-12] MEDS: Pantoprazole 40 MG Vial IVPUSH SCH (07:48)
[2019-06-12] MEDS: methylPREDNISolone Sodium Succinate 125 MG/2 ML SDV IVPUSH SCH (07:48)
[2019-06-12] MEDS: Sodium Chloride 0.9% 10 ML Syringe FLUSH PRN ×6 (07:49→17:04)
[2019-06-12] MEDS ORDERED: atorvaSTATin 10 MG Tab PO SCH (08:00)
[2019-06-12] MEDS ORDERED: Budesonide 0.5 MG/2 ML Neb Susp INH SCH (08:00)
[2019-06-12] MEDS: Cholecalciferol (Vitamin D3) 25 MCG Tab PO SCH (08:19)
[2019-06-12] MEDS ORDERED: Sodium Chloride 0.9% Inhalation Soln 3 ML Neb INH PRN (09:00)
[2019-06-12] MEDS ORDERED: Morphine 2 MG/ML Syringe PRN (09:00)
--- NOTE | 2019-06-12 09:14 | PCM.PN ---
- General Info Date of Service: 06/12/19 Admission Dx/Problem (Free Text): COPD exacerbation Functional Status: Reports: Pain Controlled, Tolerating Diet, Ambulating, Urinating, Incentive Spirometry. Denies: New Symptoms Pain Score: 0 - Review of Systems General: Denies: Fever, Weakness, Chills, Night Sweats, Appetite (Current) HEENT: Reports: Sinus Congestion, Rhinitis. Denies: Ear Pain, Headaches, Sore Throat, Visual Changes Pulmonary: Reports: Shortness of Breath, Cough, Wheezing. Denies: Pleuritic Chest Pain, Sputum, Hemoptysis Cardiovascular: Reports: Dyspnea on Exertion, Edema (Stable chronic dependent). Denies: Chest Pain, Palpitations, Orthopnea, Lightheadedness Gastrointestinal: Reports: No Symptoms, Other (No bowel movement since admission ). Denies: Abdominal Pain, Constipation, Decreased Appetite, Diarrhea, Difficulty Swallowing, Flatus, Hematochezia, Melena, Nausea, Vomiting Genitourinary: Reports: No Symptoms. Denies: Dysuria, Frequency, Burning, Urgency, Incontinence, Hematuria, Retention, Flank Pain Musculoskeletal: Reports: No Symptoms. Denies: Neck Pain, Shoulder Pain, Arm Pain, Back Pain, Leg Pain, Joint Swelling Skin: Reports: Rash (Stable lower leg anterior tibial). Denies: Diaphoresis, Bruising Neurological: Reports: No Symptoms. Denies: Confusion, Headache, Numbness, Paresthesia, Difficulty Walking, Weakness Psychiatric: Reports: No Symptoms. Denies: Confusion, Depression, Anxiety, Agitation, Hallucinations - Patient Data Vitals - Most Recent: Last Vital Signs Temp 36.7 C 06/12/19 08:00 Pulse 98 06/12/19 08:00 Resp 20 06/12/19 08:00 BP 148/95 H 06/12/19 08:00 Pulse Ox 92 L 06/12/19 08:00 Weight - Most Recent: 164.654 kg I&O - Last 24 Hours: Intake & Output 06/11/19 06/12/19 06/12/19 22:59 06:59 14:59 Intake Total 270 350 600 Output Total 2400 900 Balance -2130 -550 600 Imaging Impressions - Last 24 Hours: Final report of negative CTA of the chest is still pending. Lab Results Last 24 Hours: Laboratory Results - last 24 hr 06/11/19 06/11/19 06/11/19 Range/Units 12:42 12:42 12:43 WBC (4.0-10.2) K/uL RBC (4.33-5.41) M/uL Hgb (13.1-16.8) g/dL Hct (39.0-49.0) % MCV (84.0-98.0) fL MCH (28.2-33.3) pg MCHC (31.7-36.0) g/dL RDW (11.2-14.1) % Plt Count (150-350) K/uL Neut % (Auto) (45.0-80.0) % Lymph % (Auto) (10.0-50.0) % [place] % (Auto) (2.0-14.0) % Eos % (Auto) (0.0-5.0) % Baso % (Auto) (0.0-2.0) % Neut # (Auto) (1.40-7.00) K/uL Lymph # (Auto) (0.50-3.50) K/uL [place] # (Auto) (0.00-1.00) K/uL Eos # (Auto) (0.00-0.50) K/uL Baso # (Auto) (0.00-0.20) K/uL ABG pH (7.35-7.45) ABG pCO2 (35-45) mmHG ABG pO2 (80-105) mmHG ABG HCO3 (22-26) mmol/L ABG Total CO2 (23-27) mmol/L ABG O2 Saturation (95-98) % ABG Base Excess (-2-3) mmol/L O2 Delivery Device Sodium (136-145) mmol/L Potassium (3.5-5.1) mmol/L Chloride (98-107) mmol/L Carbon Dioxide (21.0-32.0) mmol/L BUN (7-18) mg/dL Creatinine (0.51-1.17) mg/dL Est Cr Clr Drug Dosing mL/min Estimated GFR (MDRD) mL/min Glucose (74-106) mg/dL Hemoglobin A1c 5.1 (4.3-5.7) % Lactic Acid 1.8 (0.4-2.0) mmol/L Calcium (8.5-10.1) mg/dL Magnesium 1.8 (1.8-2.4) mg/dL 06/11/19 06/12/19 06/12/19 Range/Units 14:00 07:20 07:20 WBC 9.5 (4.0-10.2) K/uL RBC 4.85 (4.33-5.41) M/uL Hgb 15.0 (13.1-16.8) g/dL Hct 45.9 (39.0-49.0) % MCV 94.6 (84.0-98.0) fL MCH 30.9 (28.2-33.3) pg MCHC 32.7 (31.7-36.0) g/dL RDW 14.3 H (11.2-14.1) % Plt Count 187 (150-350) K/uL Neut % (Auto) 93.4 H (45.0-80.0) % Lymph % (Auto) 4.2 L (10.0-50.0) % [place] % (Auto) 2.3 (2.0-14.0) % Eos % (Auto) 0.0 (0.0-5.0) % Baso % (Auto) 0.1 (0.0-2.0) % Neut # (Auto) 8.84 H (1.40-7.00) K/uL Lymph # (Auto) 0.40 L (0.50-3.50) K/uL [place] # (Auto) 0.22 (0.00-1.00) K/uL Eos # (Auto) 0.00 (0.00-0.50) K/uL Baso # (Auto) 0.01 (0.00-0.20) K/uL ABG pH 7.45 (7.35-7.45) ABG pCO2 41 (35-45) mmHG ABG pO2 44 L* (80-105) mmHG ABG HCO3 28.5 H (22-26) mmol/L ABG Total CO2 30 H (23-27) mmol/L ABG O2 Saturation 82 L (95-98) % ABG Base Excess 4 H (-2-3) mmol/L O2 Delivery Device Room air Sodium 142 (136-145) mmol/L Potassium 4.5 (3.5-5.1) mmol/L Chloride 104 (98-107) mmol/L Carbon Dioxide 28.8 (21.0-32.0) mmol/L BUN 27 H (7-18) mg/dL Creatinine 1.00 (0.51-1.17) mg/dL Est Cr Clr Drug Dosing 96.22 mL/min Estimated GFR (MDRD) > 60 mL/min Glucose 197 H (74-106) mg/dL Hemoglobin A1c (4.3-5.7) % Lactic Acid (0.4-2.0) mmol/L Calcium 9.0 (8.5-10.1) mg/dL Magnesium (1.8-2.4) mg/dL [place] Results Last 24 Hours: None Med Orders - Current: Current Medications Acetaminophen (Tylenol) 650 mg PO Q4H PRN PRN Reason: Pain (Mild 1-3)/fever Albuterol (Proventil Neb Soln) 2.5 mg NEB Q2H PRN PRN Reason: Shortness of Breath Last Admin: 06/11/19 17:27 Dose: 2.5 mg Albuterol/Ipratropium (Duoneb 3.0-0.5 Mg/3 Ml) 3 ml NEB Q4HRRT [facility] Last Admin: 06/12/19 07:47 Dose: 3 ml Aspirin (Halfprin) 81 mg PO DAILY [facility] Last Admin: 06/12/19 07:46 Dose: 81 mg Atorvastatin Calcium (Lipitor) 10 mg PO DAILY [facility] Last Admin: 06/12/19 07:46 Dose: 10 mg Budesonide (Pulmicort) 0.5 mg INH BIDRT [facility] Cetirizine HCl (Zyrtec) 10 mg PO DAILY [facility] Last Admin: 06/12/19 07:46 Dose: 10 mg Cholecalciferol (Vitamin D3) 50 mcg PO DAILY [facility] Last Admin: 06/12/19 08:19 Dose: 50 mcg Doxycycline Hyclate (Vibramycin) 100 mg PO Q12HR [facility] Enoxaparin Sodium (Lovenox) 40 mg SUBCUT DAILY [facility] Last Admin: 06/12/19 07:47 Dose: 40 mg Furosemide (Lasix) 20 mg IVPUSH DAILY [facility] Last Admin: 06/12/19 07:47 Dose: 20 mg Guaifenesin (Mucinex) 1,200 mg PO BID [facility] Azithromycin 500 mg/ Sodium (Chloride) 250 mls @ 250 mls/hr IV Q24H [facility] Last Admin: 06/11/19 17:27 Dose: 250 mls/hr Magnesium Sulfate 2 gm/ Premix 50 mls @ 50 mls/hr IV DAILY [facility] Ibuprofen (Motrin) 600 mg PO Q6H PRN PRN Reason: Pain (mild 1-3) Magnesium Oxide (Magnesium Oxide) 800 mg PO DAILY [facility] Last Admin: 06/12/19 07:46 Dose: 800 mg Melatonin (Melatonin) 6 mg PO BEDTIME [facility] Last Admin: 06/11/19 20:14 Dose: 6 mg Methylprednisolone Sodium Succinate (Solu-Medrol) 125 mg IVPUSH DAILY [facility] Last Admin: 06/12/19 07:48 Dose: 125 mg Metoprolol Tartrate (Lopressor) 100 mg PO BID [facility] Last Admin: 06/12/19 07:47 Dose: 100 mg Morphine Sulfate (Morphine) 2 mg .XX Q2H PRN PRN Reason: Dyspnea Ondansetron HCl (Zofran Odt) 4 mg PO Q6H PRN PRN Reason: Nausea/Vomiting Ondansetron HCl (Zofran) 4 mg IVPUSH Q6H PRN PRN Reason: Nausea/Vomiting Pantoprazole Sodium (Protonix Iv) 40 mg IVPUSH DAILY [facility] Last Admin: 06/12/19 07:48 Dose: 40 mg Sodium Chloride (Saline Flush) 10 ml FLUSH ASDIRECTED PRN PRN Reason: Keep Vein Open Last Admin: 06/12/19 07:52 Dose: 10 ml Discontinued Medications Albuterol/Ipratropium (Duoneb 3.0-0.5 Mg/3 Ml) 3 ml NEB ONETIME ONE Stop: 06/11/19 13:38 Last Admin: 06/11/19 13:54 Dose: 3 ml Budesonide (Pulmicort) 0.5 mg INH DAILY [facility] Last Admin: 06/12/19 07:47 Dose: 0.5 mg Furosemide (Lasix) 20 mg IVPUSH ONETIME ONE Stop: 06/11/19 17:34 Last Admin: 06/11/19 18:01 Dose: 20 mg Iopamidol (Isovue-300 (61%)) 100 ml IVPUSH ONETIME ONE Stop: 06/11/19 14:53 Last Admin: 06/11/19 15:52 Dose: 100 ml Methylprednisolone Sodium Succinate (Solu-Medrol) 125 mg IVPUSH ONETIME ONE Stop: 06/11/19 13:38 Last Admin: 06/11/19 13:54 Dose: 125 mg Methylprednisolone Sodium Succinate (Solu-Medrol) 125 mg IVPUSH ONETIME ONE Stop: 06/11/19 22:01 Last Admin: 06/11/19 21:33 Dose: 125 mg - Exam Quality Assessment: Supplemental Oxygen, DVT Prophylaxis (Lovenox subcutaneous) . No: Central Line/PICC, Urine Catheter, Skin Breakdown, Restraints General: Alert, Oriented, Cooperative, No Acute Distress HEENT: Pupils Equal, Pupils Reactive, EOMI, Mucous Membr. Moist/[place] Neck: Supple, Trachea Midline, No JVD, No Thyromegaly, +2 Carotid Pulse wo Bruit. No: Lymphadenopathy Lungs: Decreased Breath Sounds (However improved since admission per nursing history), Rales (Diffuse mild bilateral), Rhonchi (Diffuse mild bilateral), Wheezing (Diffuse mild bilateral). No: Rub, Stridor Cardiovascular: Regular Rate, Regular Rhythm, No Murmurs. No: Gallops, Rubs GI/Abdominal Exam: Normal Bowel Sounds, Soft, Non-Tender, No Organomegaly, No Distention, No Abnormal Bruit, No Mass, Pelvis Stable, Other (Obese) (Male) Exam: Deferred Back Exam: Normal Inspection, Full Range of Motion. No: CVA Tenderness (L), CVA Tenderness (R), Muscle Spasm Extremities: Normal Range of Motion, Non-Tender, Pedal Edema (Stable by patient history mild lymphedema of the lower extremities with additional stable trace anterior tibial rash by history). No: No Pedal Edema, Matias's Sign, Increased Warmth Peripheral Pulses: 1+: Dorsalis Pedis (L), Dorsalis Pedis (R), 2+: Radial (R), Femoral (L) Skin: Warm, Dry, Intact, Rash (As above) Neurological: No New Focal Deficit Psy/Mental Status: Alert, Normal Affect, Normal Mood. No: Agitated, Hallucinations, Withdrawal Symptoms - Problem List & Annotations (1) Reactive airway disease SNOMED Code(s): 475106092165 Code(s): J45.909 - UNSPECIFIED ASTHMA, UNCOMPLICATED Status: Chronic Priority: High Current Visit: Yes Onset Date: ~06/11/19 Qualifiers: Asthma severity: severe Asthma persistence: persistent Asthma complication type: with acute exacerbation Qualified Code(s): J45.51 - Severe persistent asthma with (acute) exacerbation Annotation/Comment:: Severe exacerbation of his reactive airway disease with history of acute respiratory failure in the past as per emergency room note. I did consult with Dr. Painter, admitting physician, earlier this morning on 06/12 concerning treatment, workup, etc.. CTA of the chest report is still pending. His Pulmicort nebulizer treatments will be increased to a twice a day basis, initiate additional high-dose Mucinex and IV magnesium sulfate infusions. In addition, and oral doxycycline as an anti-inflammatory agent with possibility of current bronchopneumonia, although the patient is afebrile. Continue IV Zithromax for now. Additional when necessary morphine nebulizer treatments have been ordered. Patient will be placed on telemetry secondary to his previous history of respiratory failure. Clinically patient is much improved today per nurse's history. Additional BNP, etc. has been ordered for tomorrow's blood work to rule out cardiac asthma component. Continue incentive spirometer, which had already been started by the nurses, with order placed on 06/12. The patient is still needing O2 at 2 L/m by nasal cannula. (2) Hypertension SNOMED Code(s): 44890583 Code(s): I10 - ESSENTIAL (PRIMARY) HYPERTENSION Status: Chronic Priority : Medium Current Visit: Yes Qualifiers: Hypertension type: essential hypertension Qualified Code(s): I10 - Essential (primary) hypertension Annotation/Comment:: Blood pressure somewhat elevated on initial phases of hospitalization. Continue to observe closely during this hospitalization and by regular providers on an outpatient basis. (3) Dyslipidemia SNOMED Code(s): 675860423 Code(s): E78.5 - HYPERLIPIDEMIA, UNSPECIFIED Status: Chronic Priority: Medium Current Visit: Yes Annotation/Comment:: Currently under therapy. Weight loss in moderation advisable. Continue to observe closely by regular providers. (4) Obesities, morbid SNOMED Code(s): 996159161 Code(s): E66.01 - MORBID (SEVERE) OBESITY DUE TO EXCESS CALORIES Status: Chronic Priority: Medium Current Visit: Yes Annotation/Comment:: Patient to be placed on a low calorie heart healthy diet at discharge with extensive weight loss counseling by regular providers after discharge advised. (5) GERD (gastroesophageal reflux disease) SNOMED Code(s): 705322589 Code(s): K21.9 - GASTRO-ESOPHAGEAL REFLUX DISEASE WITHOUT ESOPHAGITIS Status: Chronic Priority: Medium Current Visit: Yes Qualifiers: Esophagitis presence: esophagitis presence not specified Qualified Code(s) : K21.9 - Gastro-esophageal reflux disease without esophagitis Annotation/Comment:: Stable per patient history. Continue IV Protonix as GI prophylaxis secondary to IV Solu-Medrol, etc.. (6) Osteoarthritis SNOMED Code(s): 953181684 Code(s): M19.90 - UNSPECIFIED OSTEOARTHRITIS, UNSPECIFIED SITE Status: Chronic Priority: Medium Current Visit: Yes Qualifiers: Osteoarthritis location: multiple joints Osteoarthritis type: unspecified Qualified Code(s): M15.9 - Polyosteoarthritis, unspecified Annotation/Comment:: Stable per patient history - Problem List Review Problem List Initiated/Reviewed/Updated: Yes - My Orders Last 24 Hours: My Active Orders 06/12/19 08:47 RT Incentive Spirometry [RC] ASDIRECTED 06/12/19 08:58 Morphine 2 mg .XX Q2H PRN 06/12/19 09:00 Magnesium Sulfate/Water [Magnesium Sulfate in Water Premix] 2 gm Premix Bag 1 bag IV DAILY guaiFENesin [Mucinex] 1,200 mg PO BID 06/12/19 09:02 Doxycycline [Vibramycin] 100 mg PO Q12HR 06/12/19 09:03 CULTURE SPUTUM + SMEAR [RM] Routine 06/12/19 20:00 Budesonide [Pulmicort] 0.5 mg INH BIDRT 06/13/19 05:11 Chest 2V [CR] Routine BASIC METABOLIC PANEL,BMP [CHEM] Routine CBC WITH AUTO DIFF [HEME] Routine CK W CKMB [CHEM] Routine MAGNESIUM [CHEM] Routine PRO B-TYPE NATRIUR PEPT,BNPPRO [CHEM] Routine TROPONIN I [CHEM] Routine - Assessment Assessment:: As above - Plan Plan:: As above. Extensive precautions were given to the patient, who is in agreement with the treatment plan. The patient will require about 3-4 days of inpatient/ acute care secondary to multiple health problems as above.
[2019-06-12] MEDS: guaiFENesin 600 MG Tab.ER PO SCH ×2 (09:35→17:00)
[2019-06-12] MEDS: Magnesium Sulfate/Water 2 GM in Premix Bag 1 BAG IV SCH (09:35)
[2019-06-12] MEDS: Doxycycline 100 MG Cap PO SCH ×2 (09:35→19:33)
[2019-06-12] MEDS: Azithromycin 500 MG in Sodium Chloride 0.9% 250 ML IV SCH (17:01)
[2019-06-12] MEDS: Budesonide 0.5 MG/2 ML Neb Susp INH SCH (19:22)
[2019-06-12] MEDS: Melatonin 3 MG Tab PO SCH (20:31)
[2019-06-13] MEDS: Albuterol/Ipratropium 3.0-0.5 MG/3 ML Neb Soln NEB SCH ×6 (04:00→23:14)
[2019-06-13] MEDS: Enoxaparin 40 MG/0.4 ML Syringe SUBCUT SCH (07:28)
[2019-06-13] MEDS: Budesonide 0.5 MG/2 ML Neb Susp INH SCH ×2 (07:29→19:12)
[2019-06-13] MEDS: Cholecalciferol (Vitamin D3) 25 MCG Tab PO SCH (07:29)
[2019-06-13] MEDS: Doxycycline 100 MG Cap PO SCH ×2 (07:29→19:12)
[2019-06-13] MEDS: Metoprolol Tartrate 50 MG Tab PO SCH ×2 (07:30→19:13)
[2019-06-13] MEDS: Magnesium Oxide 400 MG Tab PO SCH (07:30)
[2019-06-13] MEDS: guaiFENesin 600 MG Tab.ER PO SCH ×2 (07:31→17:00)
[2019-06-13] MEDS: Aspirin 81 MG Tab.EC PO SCH (07:31)
[2019-06-13] MEDS: methylPREDNISolone Sodium Succinate 125 MG/2 ML SDV IVPUSH SCH (07:31)
[2019-06-13] MEDS: Cetirizine 10 MG Tab PO SCH (07:31)
[2019-06-13] MEDS: Pantoprazole 40 MG Vial IVPUSH SCH (07:32)
[2019-06-13] MEDS: Magnesium Sulfate/Water 2 GM in Premix Bag 1 BAG IV SCH (07:32)
[2019-06-13] MEDS: Furosemide 20 MG/2 ML VIAL IVPUSH SCH ×2 (07:32→17:01)
[2019-06-13] MEDS: Sodium Chloride 0.9% 10 ML Syringe FLUSH PRN ×5 (07:32→17:01)
[2019-06-13 08:11] LABS: CHLORIDE,CL 106 mmol/L (98-107); SODIUM,NA 142 mmol/L (136-145)
--- NOTE | 2019-06-13 08:46 | PCM.PN ---
- General Info Date of Service: 06/13/19 Admission Dx/Problem (Free Text): COPD exacerbation Functional Status: Reports: Pain Controlled, Tolerating Diet, Ambulating, Urinating, New Symptoms, Incentive Spirometry Pain Score: 0 - Review of Systems General: Reports: No Symptoms. Denies: Fever, Weakness, Fatigue, Malaise, Chills, Night Sweats, Appetite (Appetite good) HEENT: Reports: Post Nasal Drip, Sinus Congestion, Rhinitis, Other (Stable allergic rhinitis). Denies: Dysphasia, Ear Pain, Eye Pain, Headaches, Sore Throat Pulmonary: Reports: Shortness of Breath, Cough, Sputum (Mild), Wheezing. Denies : Pleuritic Chest Pain, Hemoptysis Cardiovascular: Reports: Dyspnea on Exertion, Edema (Stable dependent). Denies : Chest Pain, Palpitations, Orthopnea, Lightheadedness Gastrointestinal: Reports: Constipation. Denies: Abdominal Pain, Diarrhea, Difficulty Swallowing, Flatus, Hematochezia, Melena, Nausea, Vomiting, Other ( No bowel movement since admission, although he does feel that he will have one today) Genitourinary: Reports: No Symptoms. Denies: Dysuria, Frequency, Burning, Pain , Urgency, Incontinence, Hematuria, Retention, Flank Pain Musculoskeletal: Reports: No Symptoms. Denies: Neck Pain, Shoulder Pain, Arm Pain, Hand Pain, Back Pain, Leg Pain, Joint Pain, Joint Swelling Skin: Reports: No Symptoms. Denies: Pallor, Diaphoresis, Bruising, Pruritis, Rash Neurological: Reports: No Symptoms. Denies: Confusion, Dizziness, Headache, Numbness, Paresthesia, Syncope, Tingling Psychiatric: Reports: No Symptoms. Denies: Confusion, Depression, Anxiety, Agitation, Hallucinations - Patient Data Vitals - Most Recent: Last Vital Signs Temp 36.7 C 06/13/19 07:35 Pulse 72 06/13/19 07:35 Resp 18 06/13/19 07:35 BP 135/89 06/13/19 07:35 Pulse Ox 95 06/13/19 07:35 Vital Signs - 24 hr 06/12/19 06/12/19 06/12/19 12:00 15:55 17:00 Temperature [ 36.9 C 37.1 C Temporal] Pulse, 97 Peripheral Pulse, 84 97 Peripheral [ Pulse Oximetry] Respiratory 20 19 Rate Blood Pressure 125/77 Blood Pressure 122/88 125/77 [Right Upper Arm] O2 Sat by Pulse 92 L 93 L Oximetry 06/12/19 06/12/19 06/13/19 19:50 23:59 04:00 Temperature [ 36.8 C 36.8 C 36.6 C Temporal] Pulse, Peripheral Pulse, 97 79 78 Peripheral [ Pulse Oximetry] Respiratory 18 18 18 Rate Blood Pressure Blood Pressure 127/83 135/72 132/97 H [Right Upper Arm] O2 Sat by Pulse 93 L 91 L 95 Oximetry 06/13/19 06/13/19 07:30 07:35 Temperature [ 36.7 C Temporal] Pulse, 76 Peripheral Pulse, 72 Peripheral [ Pulse Oximetry] Respiratory 18 Rate Blood Pressure 135/89 Blood Pressure 135/89 [Right Upper Arm] O2 Sat by Pulse 95 Oximetry Weight - Most Recent: 164.654 kg I&O - Last 24 Hours: Intake & Output 06/12/19 06/13/19 06/13/19 22:59 06:59 14:59 Intake Total 300 Output Total 800 300 Balance -800 0 Imaging Impressions - 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 No ectopy or arrhythmia. Chest x-ray, PA and lateral, shows somewhat poor respiratory film with moderate pulmonary obstructive disease and probable pulmonary hypertension and/or borderline centralized CHF. No pulmonary infiltrates, pneumothorax, cardiomegaly , etc. Lab Results Last 24 Hours: Laboratory Results - last 24 hr 06/13/19 06/13/19 Range/Units 07:10 07:10 WBC 12.4 H (4.0-10.2) K/uL RBC 4.73 (4.33-5.41) M/uL Hgb 14.6 (13.1-16.8) g/dL Hct 45.6 (39.0-49.0) % MCV 96.4 (84.0-98.0) fL MCH 30.9 (28.2-33.3) pg MCHC 32.0 (31.7-36.0) g/dL RDW 14.8 H (11.2-14.1) % Plt Count 195 (150-350) K/uL Neut % (Auto) 81.9 H (45.0-80.0) % Lymph % (Auto) 9.5 L (10.0-50.0) % [place] % (Auto) 8.3 (2.0-14.0) % Eos % (Auto) 0.1 (0.0-5.0) % Baso % (Auto) 0.2 (0.0-2.0) % Neut # (Auto) 10.16 H (1.40-7.00) K/uL Lymph # (Auto) 1.18 (0.50-3.50) K/uL [place] # (Auto) 1.03 H (0.00-1.00) K/uL Eos # (Auto) 0.01 (0.00-0.50) K/uL Baso # (Auto) 0.02 (0.00-0.20) K/uL Sodium 142 (136-145) mmol/L Potassium 4.2 (3.5-5.1) mmol/L Chloride 106 (98-107) mmol/L Carbon Dioxide 28.8 (21.0-32.0) mmol/L BUN 30 H (7-18) mg/dL Creatinine 0.92 (0.51-1.17) mg/dL Est Cr Clr Drug Dosing 104.58 mL/min Estimated GFR (MDRD) > 60 mL/min Glucose 114 H (74-106) mg/dL Calcium 8.8 (8.5-10.1) mg/dL Magnesium 2.3 (1.8-2.4) mg/dL Creatine Kinase 20 L (26-308) U/L Creatine Kinase Index 3.0 H (0.0-2.5) % CK-MB (CK-2) 0.60 (0.00-3.60) ng/mL Troponin I 0.008 (0.000-0.056) ng/mL NT-Pro-B Natriuret Pep 364 H (0-125) pg/mL [facility] Results Last 24 Hours: Sputum had been collected however unsatisfactory specimen with repeat collection ordered. Med Orders - Current: Current Medications Acetaminophen (Tylenol) 650 mg PO Q4H PRN PRN Reason: Pain (Mild 1-3)/fever Albuterol (Proventil Neb Soln) 2.5 mg NEB Q2H PRN PRN Reason: Shortness of Breath Last Admin: 06/11/19 17:27 Dose: 2.5 mg Albuterol/Ipratropium (Duoneb 3.0-0.5 Mg/3 Ml) 3 ml NEB Q4HRRT [facility] Last Admin: 06/13/19 07:29 Dose: 3 ml Aspirin (Halfprin) 81 mg PO DAILY [facility] Last Admin: 06/13/19 07:31 Dose: 81 mg Atorvastatin Calcium (Lipitor) 10 mg PO BEDTIME [facility] Budesonide (Pulmicort) 0.5 mg INH BIDRT [facility] Last Admin: 06/13/19 07:29 Dose: 0.5 mg Cetirizine HCl (Zyrtec) 10 mg PO DAILY [facility] Last Admin: 06/13/19 07:31 Dose: 10 mg Cholecalciferol (Vitamin D3) 50 mcg PO DAILY [facility] Last Admin: 06/13/19 07:29 Dose: 50 mcg Doxycycline Hyclate (Vibramycin) 100 mg PO Q12HR [facility] Last Admin: 06/13/19 07:29 Dose: 100 mg Enoxaparin Sodium (Lovenox) 40 mg SUBCUT DAILY [facility] Last Admin: 06/13/19 07:28 Dose: 40 mg Furosemide (Lasix) 20 mg IVPUSH BID [facility] Guaifenesin (Mucinex) 1,200 mg PO BID [facility] Last Admin: 06/13/19 07:31 Dose: 1,200 mg Azithromycin 500 mg/ Sodium (Chloride) 250 mls @ 250 mls/hr IV Q24H [facility] Last Admin: 06/12/19 17:01 Dose: 250 mls/hr Ibuprofen (Motrin) 600 mg PO Q6H PRN PRN Reason: Pain (mild 1-3) Lisinopril (Prinivil) 10 mg PO DAILY [facility] Magnesium Oxide (Magnesium Oxide) 800 mg PO DAILY [facility] Last Admin: 06/13/19 07:30 Dose: 800 mg Melatonin (Melatonin) 6 mg PO BEDTIME [facility] Last Admin: 06/12/19 20:31 Dose: 6 mg Methylprednisolone Sodium Succinate (Solu-Medrol) 125 mg IVPUSH DAILY [facility] Last Admin: 06/13/19 07:31 Dose: 125 mg Metoprolol Tartrate (Lopressor) 100 mg PO 0800,2000 [facility] Last Admin: 06/13/19 07:30 Dose: 100 mg Morphine Sulfate (Morphine) 2 mg .XX Q2H PRN PRN Reason: Dyspnea Ondansetron HCl (Zofran Odt) 4 mg PO Q6H PRN PRN Reason: Nausea/Vomiting Ondansetron HCl (Zofran) 4 mg IVPUSH Q6H PRN PRN Reason: Nausea/Vomiting Pantoprazole Sodium (Protonix Iv) 40 mg IVPUSH DAILY [facility] Last Admin: 06/13/19 07:32 Dose: 40 mg Sodium Chloride (Saline Flush) 10 ml FLUSH ASDIRECTED PRN PRN Reason: Keep Vein Open Last Admin: 06/13/19 07:36 Dose: 10 ml Sodium Chloride (Sodium Chloride 0.9%) 3 ml INH Q2H PRN PRN Reason: SHORTNESS OF BREATH Theophylline (Theophylline Anhydrous) 300 mg PO BID [facility] Discontinued Medications Albuterol/Ipratropium (Duoneb 3.0-0.5 Mg/3 Ml) 3 ml NEB ONETIME ONE Stop: 06/11/19 13:38 Last Admin: 06/11/19 13:54 Dose: 3 ml Atorvastatin Calcium (Lipitor) 10 mg PO DAILY [facility] Last Admin: 06/12/19 07:46 Dose: 10 mg Budesonide (Pulmicort) 0.5 mg INH DAILY [facility] Last Admin: 06/12/19 07:47 Dose: 0.5 mg Furosemide (Lasix) 20 mg IVPUSH ONETIME ONE Stop: 06/11/19 17:34 Last Admin: 06/11/19 18:01 Dose: 20 mg Furosemide (Lasix) 20 mg IVPUSH DAILY [facility] Last Admin: 06/13/19 07:32 Dose: 20 mg Magnesium Sulfate 2 gm/ Premix 50 mls @ 50 mls/hr IV DAILY [facility] Last Admin: 06/13/19 07:32 Dose: 50 mls/hr Iopamidol (Isovue-300 (61%)) 100 ml IVPUSH ONETIME ONE Stop: 06/11/19 14:53 Last Admin: 06/11/19 15:52 Dose: 100 ml Methylprednisolone Sodium Succinate (Solu-Medrol) 125 mg IVPUSH ONETIME ONE Stop: 06/11/19 13:38 Last Admin: 06/11/19 13:54 Dose: 125 mg Methylprednisolone Sodium Succinate (Solu-Medrol) 125 mg IVPUSH ONETIME ONE Stop: 06/11/19 22:01 Last Admin: 06/11/19 21:33 Dose: 125 mg Metoprolol Tartrate (Lopressor) 100 mg PO BID [facility] Last Admin: 06/12/19 17:00 Dose: 100 mg - Exam Quality Assessment: Supplemental Oxygen (Currently 1 L/m by nasal cannula), DVT Prophylaxis (Subcutaneous Lovenox). No: Central Line/PICC, Urine Catheter, Skin Breakdown General: Alert, Oriented, Cooperative, No Acute Distress HEENT: Pupils Equal, Pupils Reactive, EOMI, Mucous Membr. Moist/[place]. No: Scleral Icterus Neck: Supple, Trachea Midline, No JVD, No Thyromegaly, +2 Carotid Pulse wo Bruit. No: Lymphadenopathy Lungs: Decreased Breath Sounds, Rales (Occasional mild diffuse bilateral however improved from yesterday), Rhonchi (As above), Wheezing (As above), Other (Nebulizer treatment just completed) Cardiovascular: Regular Rate, Regular Rhythm, No Murmurs. No: Gallops, Rubs GI/Abdominal Exam: Normal Bowel Sounds, Soft, Non-Tender, No Organomegaly, No Distention, No Abnormal Bruit, No Mass, Other (Morbid obesity). No: Guarding (Male) Exam: Deferred Back Exam: Normal Inspection, Full Range of Motion. No: CVA Tenderness (L), CVA Tenderness (R), Muscle Spasm Extremities: Normal Range of Motion, Non-Tender, Pedal Edema (Stable mild bilateral lymphedema of the lower extremities with trace erythema over the anterior tibial regions with no evidence of infection. Both edema and erythema are stable from preadmission by patient history). No: Matias's Sign, Increased Warmth Peripheral Pulses: 1+: Dorsalis Pedis (L), Dorsalis Pedis (R), 2+: Radial (L), Radial (R) Skin: Warm, Dry, Intact, Rash (As above) Neurological: No New Focal Deficit Psy/Mental Status: Alert, Normal Affect, Normal Mood EKG INTERPRETATION EKG Date: 06/13/19 Time: 08:53 Rhythm: NSR Rate (Beats/Min): 78 [place]: Normal (Neutral cardiac axis with change from previous right cardiac axis) P-Wave: Enlarged (Mild diffuse biphasic P waves with resolution of previous pulmonary hypertension by EKG) QRS: Normal (QRS interval of 0.08 seconds representing repolarization changes) ST-T: Other (Stable T-wave inversions in leads 3 and aVF and V1 with resolution of previous T-wave inversions in leads V2 through V6) QT: Normal NH/PQ Interval: 0.17 seconds with resolution of previous first degree AV block Comparison: Change From Previous EKG (As above since 02/18/19) EKG Interpretation Comments: 1. Possible inferior wall cardiac ischemia 2. Left atrial enlargement 3. First-degree AV block-resolved - Problem List & Annotations (1) Reactive airway disease SNOMED Code(s): 092092734799 Code(s): J45.909 - UNSPECIFIED ASTHMA, UNCOMPLICATED Status: Chronic Priority: High Current Visit: Yes Onset Date: ~06/11/19 Qualifiers: Asthma severity: severe Asthma persistence: persistent Asthma complication type: with acute exacerbation Qualified Code(s): J45.51 - Severe persistent asthma with (acute) exacerbation Annotation/Comment:: Continued extremely refractory exacerbation of his reactive airway disease with history of acute respiratory failure in the past as per emergency room note. Symptoms are improving slowly with discontinuation today of patient's IV magnesium sulfate after today's dose. Discuss possible additional preventative medications for your headaches with your regular provider. Magnesium level is normal today. Continue high-dose oral magnesium oxide as before. Note mild BNP elevation and borderline centralized CHF by today 's chest x-ray with continued dependent edema. CK index artifactually elevated secondary to low baseline CK with otherwise normal EKG and cardiac enzymes. No chest pain or anginal type symptoms. Increase IV Lasix to 20 mg twice a day with additional low-dose lisinopril. Patient apparently was already referred to a charter driver by his regular provider, however the patient has yet to make this appointment. Follow-up with his charter driver FABIOLA after discharge strongly advised. Initiate theophylline therapy secondary to refractory symptoms with continuation of aggressive IV Solu-Medrol and triple nebulizer treatments. Patient's O2 has been titrated down to 1 L/m by nasal cannula. After the patient is back to his normal baseline he would likely benefit from an echocardiogram to rule out possible CHF and/or pulmonary hypertension. I did consult with Dr. Painter, admitting physician, on 06/12 concerning treatment, workup, etc.. CTA of the chest final report is still pending. His Pulmicort nebulizer treatments was increased to a twice a day basis and initiation of additional high-dose Mucinex and IV magnesium sulfate infusions on 06/12. In addition, oral doxycycline was initiated on 06/12 as an anti-inflammatory agent with possibility of current bronchopneumonia, although the patient is afebrile. Continue IV Zithromax for now. Additional when necessary morphine nebulizer treatments were also ordered on 06/12. Patient placed on telemetry on 06/12 secondary to his previous history of respiratory failure. Clinically patient is much improved today, although an additional 13 days of hospitalization may be required. Paul López M.D. at the [facility] assumes care in the a.m.. Continue incentive spirometer, which had already been started by the nurses on admission, with order placed on 06/12. The patient is still needing O2 at 1 L/m by nasal cannula, although no additional O2 is needed when patient is using his CPAP. Note mild leukocytosis today likely secondary to his IV Solu- Medrol therapy with no direct clinical evidence of bronchopneumonia. (2) Hypertension SNOMED Code(s): 47891899 Code(s): I10 - ESSENTIAL (PRIMARY) HYPERTENSION Status: Chronic Priority : Medium Current Visit: Yes Qualifiers: Hypertension type: essential hypertension Qualified Code(s): I10 - Essential (primary) hypertension Annotation/Comment:: Blood pressure remains somewhat elevated during initial phases of hospitalization. increase IV Lasix therapy and additional low-dose oral lisinopril was initiated on 06/13 Continue to observe closely during this hospitalization and by regular providers on an outpatient basis. (3) Dyslipidemia SNOMED Code(s): 554959113 Code(s): E78.5 - HYPERLIPIDEMIA, UNSPECIFIED Status: Chronic Priority: Medium Current Visit: Yes Annotation/Comment:: Currently under therapy. Weight loss discussed with the patient with patient placed on a fluid restricted 1200-calorie heart healthy diet on 06/13. Continued Weight loss in moderation advisable at discharge with dietary information to be provided at that time. Continue to observe closely by regular providers. (4) Obesities, morbid SNOMED Code(s): 687571258 Code(s): E66.01 - MORBID (SEVERE) OBESITY DUE TO EXCESS CALORIES Status: Chronic Priority: Medium Current Visit: Yes Annotation/Comment:: Patient to be placed on a low calorie heart healthy diet at discharge with extensive weight loss counseling by regular providers after discharge advised. (5) GERD (gastroesophageal reflux disease) SNOMED Code(s): 008141331 Code(s): K21.9 - GASTRO-ESOPHAGEAL REFLUX DISEASE WITHOUT ESOPHAGITIS Status: Chronic Priority: Medium Current Visit: Yes Qualifiers: Esophagitis presence: esophagitis presence not specified Qualified Code(s) : K21.9 - Gastro-esophageal reflux disease without esophagitis Annotation/Comment:: Stable per patient history. Continue IV Protonix as GI prophylaxis secondary to IV Solu-Medrol, etc.. (6) Osteoarthritis SNOMED Code(s): 590623686 Code(s): M19.90 - UNSPECIFIED OSTEOARTHRITIS, UNSPECIFIED SITE Status: Chronic Priority: Medium Current Visit: Yes Qualifiers: Osteoarthritis location: multiple joints Osteoarthritis type: unspecified Qualified Code(s): M15.9 - Polyosteoarthritis, unspecified Annotation/Comment:: Stable per patient history (7) Sleep apnea SNOMED Code(s): 52803569 Code(s): G47.30 - SLEEP APNEA, UNSPECIFIED Status: Acute Priority: High Current Visit: Yes Qualifiers: Sleep apnea type: other type Qualified Code(s): G47.39 - Other sleep apnea Annotation/Comment:: Note no additional O2 required with patient using CPAP as above. Weight loss in moderation advisable as above. (8) First degree AV block SNOMED Code(s): 415301978 Code(s): I44.0 - ATRIOVENTRICULAR BLOCK, FIRST DEGREE Status: Acute Priority: Medium Current Visit: Yes Onset Date: ~02/08/19 Annotation/ Comment:: No previous history of first-degree AV block and few small nonspecific ischemic changes, which have resolved today. Questionable persistent inferior wall ischemia by today's EKG with no chest pain or anginal type symptoms. Pulmonology consultation, echocardiogram, etc. as above with consideration of cardiology consultation depending on his clinical course. (9) CHF (congestive heart failure) SNOMED Code(s): 94448785 Code(s): I50.9 - HEART FAILURE, UNSPECIFIED Status: Acute Priority: High Current Visit: Yes Qualifiers: Heart failure type: unspecified Heart failure chronicity: acute on chronic Qualified Code(s): I50.9 - Heart failure, unspecified Annotation/Comment:: Borderline CHF as above. Lisinopril initiated on 06/13. Echocardiogram advisable as above. - Problem List Review Problem List Initiated/Reviewed/Updated: Yes - My Orders Last 24 Hours: My Active Orders 06/12/19 08:47 RT Incentive Spirometry [RC] Q1HWA 06/12/19 09:00 Morphine 2 mg .XX Q2H PRN Sodium Chloride 0.9% 3 ml INH Q2H PRN guaiFENesin [Mucinex] 1,200 mg PO BID 06/12/19 09:02 Doxycycline [Vibramycin] 100 mg PO Q12HR 06/12/19 09:14 Cardiac Monitoring [RC] Q2HR 06/12/19 20:00 Budesonide [Pulmicort] 0.5 mg INH BIDRT 06/13/19 00:10 CULTURE SPUTUM + SMEAR [RM] Routine 06/13/19 05:11 Chest 2V [CR] Routine 06/13/19 08:33 EKG Documentation Completion [RC] ASDIRECTED EKG 12 Lead [EK] Routine 06/13/19 08:45 Lisinopril [Prinivil] 10 mg PO DAILY Theophylline [Theophylline Anhydrous] 300 mg PO BID 06/13/19 18:00 Furosemide [Lasix] 20 mg IVPUSH BID 06/13/19 Lunch Fluid Restriction [DIET] - Assessment Assessment:: As above - Plan Plan:: As above. Extensive precautions were given to the patient, who is in agreement with the treatment plan. The patient will require about 1-3 days of inpatient/ acute care secondary to multiple health problems as above.
[2019-06-13] MEDS: Theophylline 300 MG Tab.ER PO SCH ×2 (09:23→17:00)
[2019-06-13] MEDS: Lisinopril 10 MG Tab PO SCH (09:24)
[2019-06-13] MEDS: Azithromycin 500 MG in Sodium Chloride 0.9% 250 ML IV SCH (16:07)
[2019-06-13] MEDS: Melatonin 3 MG Tab PO SCH (19:12)
[2019-06-13] MEDS: atorvaSTATin 10 MG Tab PO SCH (19:12)
[2019-06-14] MEDS: Albuterol/Ipratropium 3.0-0.5 MG/3 ML Neb Soln NEB SCH ×7 (03:31→23:56)
[2019-06-14] MEDS: Aspirin 81 MG Tab.EC PO SCH (07:34)
[2019-06-14] MEDS: guaiFENesin 600 MG Tab.ER PO SCH ×2 (07:34→17:34)
[2019-06-14] MEDS: Metoprolol Tartrate 50 MG Tab PO SCH ×2 (07:35→19:31)
[2019-06-14] MEDS: Doxycycline 100 MG Cap PO SCH ×2 (07:35→19:31)
[2019-06-14] MEDS: Sodium Chloride 0.9% 10 ML Syringe FLUSH PRN ×4 (07:36→19:26)
[2019-06-14] MEDS: Furosemide 20 MG/2 ML VIAL IVPUSH SCH ×2 (07:37→17:33)
[2019-06-14] MEDS: Cholecalciferol (Vitamin D3) 25 MCG Tab PO SCH (07:38)
[2019-06-14] MEDS: Lisinopril 10 MG Tab PO SCH (07:39)
[2019-06-14] MEDS: Magnesium Oxide 400 MG Tab PO SCH (07:39)
[2019-06-14] MEDS: Theophylline 300 MG Tab.ER PO SCH ×2 (07:39→17:33)
[2019-06-14] MEDS: Cetirizine 10 MG Tab PO SCH (07:39)
[2019-06-14] MEDS: Pantoprazole 40 MG Vial IVPUSH SCH (07:40)
[2019-06-14] MEDS: methylPREDNISolone Sodium Succinate 125 MG/2 ML SDV IVPUSH SCH (07:40)
[2019-06-14] MEDS: Enoxaparin 40 MG/0.4 ML Syringe SUBCUT SCH (07:41)
[2019-06-14] MEDS: Budesonide 0.5 MG/2 ML Neb Susp INH SCH ×2 (07:42→19:21)
[2019-06-14 09:20] LABS: CHLORIDE,CL 103 mmol/L (98-107); SODIUM,NA 141 mmol/L (136-145)
--- NOTE | 2019-06-14 12:01 | PCM.PN ---
- General Info Date of Service: 06/14/19 Admission Dx/Problem (Free Text): COPD exacerbation Subjective Update: Patient feeling better ambulating approximately 300 feet but gets tired and saturations go down to 89% at this time we will refer patient to pulmonology we will go ahead and taper his prednisone down and start by mouth medications Functional Status: Reports: Tolerating Diet, Ambulating - Review of Systems General: Reports: Weakness, Fatigue HEENT: Reports: No Symptoms Pulmonary: Reports: Shortness of Breath (With ambulation worse CPAP) Cardiovascular: Reports: No Symptoms Gastrointestinal: Reports: No Symptoms Genitourinary: Reports: No Symptoms Musculoskeletal: Reports: No Symptoms Skin: Reports: No Symptoms Neurological: Reports: No Symptoms Psychiatric: Reports: Depression - Patient Data Vitals - Most Recent: Last Vital Signs Temp 97.4 F 06/14/19 07:44 Pulse 81 06/14/19 07:44 Resp 18 06/14/19 07:44 BP 119/73 06/14/19 07:44 Pulse Ox 95 06/14/19 07:44 Weight - Most Recent: 363 lb I&O - Last 24 Hours: Intake & Output 06/13/19 06/14/19 06/14/19 22:59 06:59 14:59 Intake Total 1990 550 240 Output Total 3200 300 Balance -1210 250 240 Lab Results Last 24 Hours: Laboratory Results - last 24 hr 06/14/19 06/14/19 Range/Units 08:56 08:56 WBC 10.7 H (4.0-10.2) K/uL RBC 5.02 (4.33-5.41) M/uL Hgb 15.5 (13.1-16.8) g/dL Hct 48.1 (39.0-49.0) % MCV 95.8 (84.0-98.0) fL MCH 30.9 (28.2-33.3) pg MCHC 32.2 (31.7-36.0) g/dL RDW 14.7 H (11.2-14.1) % Plt Count 218 (150-350) K/uL Neut % (Auto) 79.6 (45.0-80.0) % Lymph % (Auto) 10.9 (10.0-50.0) % [place] % (Auto) 9.2 (2.0-14.0) % Eos % (Auto) 0.1 (0.0-5.0) % Baso % (Auto) 0.2 (0.0-2.0) % Neut # (Auto) 8.52 H (1.40-7.00) K/uL Lymph # (Auto) 1.17 (0.50-3.50) K/uL [place] # (Auto) 0.99 (0.00-1.00) K/uL Eos # (Auto) 0.01 (0.00-0.50) K/uL Baso # (Auto) 0.02 (0.00-0.20) K/uL Sodium 141 (136-145) mmol/L Potassium 4.2 (3.5-5.1) mmol/L Chloride 103 (98-107) mmol/L Carbon Dioxide 30.1 (21.0-32.0) mmol/L BUN 30 H (7-18) mg/dL Creatinine 1.04 (0.51-1.17) mg/dL Est Cr Clr Drug Dosing 92.52 mL/min Estimated GFR (MDRD) > 60 mL/min Glucose 122 H (74-106) mg/dL Calcium 8.8 (8.5-10.1) mg/dL Med Orders - Current: Current Medications Acetaminophen (Tylenol) 650 mg PO Q4H PRN PRN Reason: Pain (Mild 1-3)/fever Albuterol (Proventil Neb Soln) 2.5 mg NEB Q2H PRN PRN Reason: Shortness of Breath Last Admin: 06/11/19 17:27 Dose: 2.5 mg Albuterol/Ipratropium (Duoneb 3.0-0.5 Mg/3 Ml) 3 ml NEB Q4HRRT [facility] Last Admin: 06/14/19 07:37 Dose: 3 ml Aspirin (Halfprin) 81 mg PO DAILY [facility] Last Admin: 06/14/19 07:34 Dose: 81 mg Atorvastatin Calcium (Lipitor) 10 mg PO BEDTIME [facility] Last Admin: 06/13/19 19:12 Dose: 10 mg Azithromycin (Zithromax) 500 mg PO DAILY [facility] Budesonide (Pulmicort) 0.5 mg INH BIDRT [facility] Last Admin: 06/14/19 07:42 Dose: 0.5 mg Cetirizine HCl (Zyrtec) 10 mg PO DAILY [facility] Last Admin: 06/14/19 07:39 Dose: 10 mg Cholecalciferol (Vitamin D3) 50 mcg PO DAILY [facility] Last Admin: 06/14/19 07:38 Dose: 50 mcg Doxycycline Hyclate (Vibramycin) 100 mg PO Q12HR [facility] Last Admin: 06/14/19 07:35 Dose: 100 mg Enoxaparin Sodium (Lovenox) 40 mg SUBCUT DAILY [facility] Last Admin: 06/14/19 07:41 Dose: 40 mg Furosemide (Lasix) 20 mg IVPUSH BID [facility] Last Admin: 06/14/19 07:37 Dose: 20 mg Guaifenesin (Mucinex) 1,200 mg PO BID [facility] Last Admin: 06/14/19 07:34 Dose: 1,200 mg Ibuprofen (Motrin) 600 mg PO Q6H PRN PRN Reason: Pain (mild 1-3) Lisinopril (Prinivil) 10 mg PO DAILY [facility] Last Admin: 06/14/19 07:39 Dose: 10 mg Magnesium Oxide (Magnesium Oxide) 800 mg PO DAILY [facility] Last Admin: 06/14/19 07:39 Dose: 800 mg Melatonin (Melatonin) 6 mg PO BEDTIME [facility] Last Admin: 06/13/19 19:12 Dose: 6 mg Methylprednisolone Sodium Succinate (Solu-Medrol) 60 mg IV QID [facility] Metoprolol Tartrate (Lopressor) 100 mg PO 799,1999 [facility] Last Admin: 06/14/19 07:35 Dose: 100 mg Morphine Sulfate (Morphine) 2 mg .XX Q2H PRN PRN Reason: Dyspnea Ondansetron HCl (Zofran Odt) 4 mg PO Q6H PRN PRN Reason: Nausea/Vomiting Ondansetron HCl (Zofran) 4 mg IVPUSH Q6H PRN PRN Reason: Nausea/Vomiting Pantoprazole Sodium (Protonix Iv) 40 mg IVPUSH DAILY [facility] Last Admin: 06/14/19 07:40 Dose: 40 mg Sodium Chloride (Saline Flush) 10 ml FLUSH ASDIRECTED PRN PRN Reason: Keep Vein Open Last Admin: 06/14/19 07:36 Dose: 10 ml Sodium Chloride (Sodium Chloride 0.9%) 3 ml INH Q2H PRN PRN Reason: SHORTNESS OF BREATH Theophylline (Theophylline Anhydrous) 300 mg PO BID [facility] Last Admin: 06/14/19 07:39 Dose: 300 mg Discontinued Medications Albuterol/Ipratropium (Duoneb 3.0-0.5 Mg/3 Ml) 3 ml NEB ONETIME ONE Stop: 06/11/19 13:38 Last Admin: 06/11/19 13:54 Dose: 3 ml Atorvastatin Calcium (Lipitor) 10 mg PO DAILY [facility] Last Admin: 06/12/19 07:46 Dose: 10 mg Budesonide (Pulmicort) 0.5 mg INH DAILY [facility] Last Admin: 06/12/19 07:47 Dose: 0.5 mg Furosemide (Lasix) 20 mg IVPUSH ONETIME ONE Stop: 06/11/19 17:34 Last Admin: 06/11/19 18:01 Dose: 20 mg Furosemide (Lasix) 20 mg IVPUSH DAILY [facility] Last Admin: 06/13/19 07:32 Dose: 20 mg Azithromycin 500 mg/ Sodium (Chloride) 250 mls @ 250 mls/hr IV Q24H [facility] Last Admin: 06/13/19 16:07 Dose: 250 mls/hr Magnesium Sulfate 2 gm/ Premix 50 mls @ 50 mls/hr IV DAILY [facility] Last Admin: 06/13/19 07:32 Dose: 50 mls/hr Iopamidol (Isovue-300 (61%)) 100 ml IVPUSH ONETIME ONE Stop: 06/11/19 14:53 Last Admin: 06/11/19 15:52 Dose: 100 ml Methylprednisolone Sodium Succinate (Solu-Medrol) 125 mg IVPUSH ONETIME ONE Stop: 06/11/19 13:38 Last Admin: 06/11/19 13:54 Dose: 125 mg Methylprednisolone Sodium Succinate (Solu-Medrol) 125 mg IVPUSH DAILY [facility] Last Admin: 06/14/19 07:40 Dose: 125 mg Methylprednisolone Sodium Succinate (Solu-Medrol) 125 mg IVPUSH ONETIME ONE Stop: 06/11/19 22:01 Last Admin: 06/11/19 21:33 Dose: 125 mg Metoprolol Tartrate (Lopressor) 100 mg PO BID [facility] Last Admin: 06/12/19 17:00 Dose: 100 mg - Exam General: Alert, Oriented HEENT: Pupils Equal, Pupils Reactive, EOMI, Mucous Membr. Moist/[place] Neck: Supple Lungs: Clear to Auscultation, Decreased Breath Sounds (ML left lower lobe) Cardiovascular: Regular Rate, Regular Rhythm GI/Abdominal Exam: Normal Bowel Sounds, Soft, Non-Tender, No Organomegaly, No Distention, No Abnormal Bruit, No Mass, Pelvis Stable (Male) Exam: Deferred Back Exam: Normal Inspection, Full Range of Motion Extremities: Normal Inspection, Normal Range of Motion, Non-Tender, No Pedal Edema, Normal Capillary Refill Skin: Warm, Dry, Intact Neurological: No New Focal Deficit Psy/Mental Status: Depressed - Problem List Review Problem List Initiated/Reviewed/Updated: Yes - My Orders Last 24 Hours: My Active Orders 06/14/19 11:48 Chest 2V [CR] Stat 06/14/19 12:00 methylPREDNISolone Sod Succ [Solu-MEDROL] 60 mg IV QID 06/14/19 13:00 Azithromycin [Zithromax] 500 mg PO DAILY - Assessment Assessment:: As above - Plan Plan:: At this time we will start reducing the prednisone and changing him to oral medications so that he could be discharged and follow-up by pulmonary medicine back
[2019-06-14] MEDS: Azithromycin 250 MG Tab PO SCH (13:04)
[2019-06-14] MEDS: methylPREDNISolone Sodium Succinate 125 MG/2 ML SDV IV SCH ×3 (13:05→19:26)
[2019-06-14] MEDS: atorvaSTATin 10 MG Tab PO SCH (19:30)
[2019-06-14] MEDS: Melatonin 3 MG Tab PO SCH (19:31)
[2019-06-15] MEDS: Albuterol/Ipratropium 3.0-0.5 MG/3 ML Neb Soln NEB SCH ×5 (04:09→19:53)
[2019-06-15] MEDS: Metoprolol Tartrate 50 MG Tab PO SCH ×2 (07:12→19:52)
[2019-06-15] MEDS: Lisinopril 10 MG Tab PO SCH (07:13)
[2019-06-15] MEDS: Theophylline 300 MG Tab.ER PO SCH ×2 (07:13→17:34)
[2019-06-15] MEDS: guaiFENesin 600 MG Tab.ER PO SCH ×2 (07:13→17:34)
[2019-06-15] MEDS: Aspirin 81 MG Tab.EC PO SCH (07:13)
[2019-06-15] MEDS: Doxycycline 100 MG Cap PO SCH ×2 (07:14→19:52)
[2019-06-15] MEDS: Cholecalciferol (Vitamin D3) 25 MCG Tab PO SCH (07:14)
[2019-06-15] MEDS: Cetirizine 10 MG Tab PO SCH (07:14)
[2019-06-15] MEDS: Magnesium Oxide 400 MG Tab PO SCH (07:15)
[2019-06-15] MEDS: Furosemide 20 MG/2 ML VIAL IVPUSH SCH ×2 (07:16→17:33)
[2019-06-15] MEDS: Pantoprazole 40 MG Vial IVPUSH SCH (07:16)
[2019-06-15] MEDS: Enoxaparin 40 MG/0.4 ML Syringe SUBCUT SCH (07:16)
[2019-06-15] MEDS: methylPREDNISolone Sodium Succinate 125 MG/2 ML SDV IV SCH ×2 (07:16→12:34)
[2019-06-15] MEDS: Sodium Chloride 0.9% 10 ML Syringe FLUSH PRN ×3 (07:16→17:33)
[2019-06-15] MEDS: Budesonide 0.5 MG/2 ML Neb Susp INH SCH (07:17)
--- NOTE | 2019-06-15 11:50 | PCM.PN ---
- General Info Date of Service: 06/15/19 Admission Dx/Problem (Free Text): Patient continues to desaturate with ambulation at this time we will attempt to ambulate him with oxygen I feel that we need to keep him until his saturations improved since he is going into the low 80s with minimal ambulator ambulation we will refer him to pulmonology as soon as possible for evaluation and treatment when patient is resting his saturations are in the high 90s but with minimal ambulation it drops into the 80s. Subjective Update: Patient feeling better ambulating approximately 300 feet but gets tired and saturations go down to 89% at this time we will refer patient to pulmonology we will go ahead and taper his prednisone down and start by mouth medications - Review of Systems General: Reports: Weakness, Fatigue HEENT: Reports: No Symptoms Pulmonary: Reports: Shortness of Breath (With ambulation) Cardiovascular: Reports: No Symptoms Gastrointestinal: Reports: No Symptoms Genitourinary: Reports: No Symptoms Musculoskeletal: Reports: No Symptoms Skin: Reports: No Symptoms Neurological: Reports: No Symptoms Psychiatric: Reports: No Symptoms - Patient Data Vitals - Most Recent: Last Vital Signs Temp 96.7 F 06/15/19 07:44 Pulse 74 06/15/19 07:44 Resp 18 06/15/19 07:44 BP 121/78 06/15/19 07:44 Pulse Ox 93 L 06/15/19 07:44 Weight - Most Recent: 363 lb I&O - Last 24 Hours: Intake & Output 06/14/19 06/15/19 06/15/19 22:59 06:59 14:59 Intake Total 920 200 220 Output Total 1400 500 Balance -480 -300 220 [place] Results Last 24 Hours: Microbiology 06/13/19 12:09 Gram Stain - Final Sputum - Induced Sputum Culture - Preliminary Normal [place] Med Orders - Current: Current Medications Acetaminophen (Tylenol) 650 mg PO Q4H PRN PRN Reason: Pain (Mild 1-3)/fever Albuterol (Proventil Neb Soln) 2.5 mg NEB Q2H PRN PRN Reason: Shortness of Breath Last Admin: 06/11/19 17:27 Dose: 2.5 mg Albuterol/Ipratropium (Duoneb 3.0-0.5 Mg/3 Ml) 3 ml NEB Q4HRRT [facility] Last Admin: 06/15/19 07:13 Dose: 3 ml Aspirin (Halfprin) 81 mg PO DAILY [facility] Last Admin: 06/15/19 07:13 Dose: 81 mg Atorvastatin Calcium (Lipitor) 10 mg PO BEDTIME [facility] Last Admin: 06/14/19 19:30 Dose: 10 mg Azithromycin (Zithromax) 500 mg PO DAILY@1300 [facility] Last Admin: 06/14/19 13:04 Dose: 500 mg Budesonide (Pulmicort) 0.5 mg INH BIDRT [facility] Last Admin: 06/15/19 07:17 Dose: 0.5 mg Cetirizine HCl (Zyrtec) 10 mg PO DAILY [facility] Last Admin: 06/15/19 07:14 Dose: 10 mg Cholecalciferol (Vitamin D3) 50 mcg PO DAILY [facility] Last Admin: 06/15/19 07:14 Dose: 50 mcg Doxycycline Hyclate (Vibramycin) 100 mg PO Q12HR [facility] Last Admin: 06/15/19 07:14 Dose: 100 mg Enoxaparin Sodium (Lovenox) 40 mg SUBCUT DAILY [facility] Last Admin: 06/15/19 07:16 Dose: 40 mg Furosemide (Lasix) 20 mg IVPUSH BID [facility] Last Admin: 06/15/19 07:16 Dose: 20 mg Guaifenesin (Mucinex) 1,200 mg PO BID [facility] Last Admin: 06/15/19 07:13 Dose: 1,200 mg Ibuprofen (Motrin) 600 mg PO Q6H PRN PRN Reason: Pain (mild 1-3) Lisinopril (Prinivil) 10 mg PO DAILY [facility] Last Admin: 06/15/19 07:13 Dose: 10 mg Magnesium Oxide (Magnesium Oxide) 800 mg PO DAILY [facility] Last Admin: 06/15/19 07:15 Dose: 800 mg Melatonin (Melatonin) 6 mg PO BEDTIME [facility] Last Admin: 06/14/19 19:31 Dose: 6 mg Methylprednisolone Sodium Succinate (Solu-Medrol) 60 mg IV QID [facility] Last Admin: 06/15/19 07:16 Dose: 60 mg Metoprolol Tartrate (Lopressor) 100 mg PO 0800,1999 [facility] Last Admin: 06/15/19 07:12 Dose: 100 mg Morphine Sulfate (Morphine) 2 mg .XX Q2H PRN PRN Reason: Dyspnea Ondansetron HCl (Zofran Odt) 4 mg PO Q6H PRN PRN Reason: Nausea/Vomiting Ondansetron HCl (Zofran) 4 mg IVPUSH Q6H PRN PRN Reason: Nausea/Vomiting Pantoprazole Sodium (Protonix Iv) 40 mg IVPUSH DAILY [facility] Last Admin: 06/15/19 07:16 Dose: 40 mg Sodium Chloride (Saline Flush) 10 ml FLUSH ASDIRECTED PRN PRN Reason: Keep Vein Open Last Admin: 06/15/19 07:16 Dose: 10 ml Sodium Chloride (Sodium Chloride 0.9%) 3 ml INH Q2H PRN PRN Reason: SHORTNESS OF BREATH Theophylline (Theophylline Anhydrous) 300 mg PO BID [facility] Last Admin: 06/15/19 07:13 Dose: 300 mg Discontinued Medications Albuterol/Ipratropium (Duoneb 3.0-0.5 Mg/3 Ml) 3 ml NEB ONETIME ONE Stop: 06/11/19 13:38 Last Admin: 06/11/19 13:54 Dose: 3 ml Atorvastatin Calcium (Lipitor) 10 mg PO DAILY [facility] Last Admin: 06/12/19 07:46 Dose: 10 mg Budesonide (Pulmicort) 0.5 mg INH DAILY [facility] Last Admin: 06/12/19 07:47 Dose: 0.5 mg Furosemide (Lasix) 20 mg IVPUSH ONETIME ONE Stop: 06/11/19 17:34 Last Admin: 06/11/19 18:01 Dose: 20 mg Furosemide (Lasix) 20 mg IVPUSH DAILY [facility] Last Admin: 06/13/19 07:32 Dose: 20 mg Azithromycin 500 mg/ Sodium (Chloride) 250 mls @ 250 mls/hr IV Q24H [facility] Last Admin: 06/13/19 16:07 Dose: 250 mls/hr Magnesium Sulfate 2 gm/ Premix 50 mls @ 50 mls/hr IV DAILY [facility] Last Admin: 06/13/19 07:32 Dose: 50 mls/hr Iopamidol (Isovue-300 (61%)) 100 ml IVPUSH ONETIME ONE Stop: 06/11/19 14:53 Last Admin: 06/11/19 15:52 Dose: 100 ml Methylprednisolone Sodium Succinate (Solu-Medrol) 125 mg IVPUSH ONETIME ONE Stop: 06/11/19 13:38 Last Admin: 06/11/19 13:54 Dose: 125 mg Methylprednisolone Sodium Succinate (Solu-Medrol) 125 mg IVPUSH DAILY [facility] Last Admin: 06/14/19 07:40 Dose: 125 mg Methylprednisolone Sodium Succinate (Solu-Medrol) 125 mg IVPUSH ONETIME ONE Stop: 06/11/19 22:01 Last Admin: 06/11/19 21:33 Dose: 125 mg Metoprolol Tartrate (Lopressor) 100 mg PO BID [facility] Last Admin: 06/12/19 17:00 Dose: 100 mg - Exam General: Alert, Oriented, Cooperative HEENT: Pupils Equal, Pupils Reactive, EOMI, Mucous Membr. Moist/[place] Neck: Supple Lungs: Clear to Auscultation, Normal Respiratory Effort, Other (Oxygen desaturation with ambulation) Cardiovascular: Regular Rate, Regular Rhythm GI/Abdominal Exam: Normal Bowel Sounds, Soft, Non-Tender, No Organomegaly, No Distention, No Abnormal Bruit, No Mass, Pelvis Stable (Male) Exam: Deferred Back Exam: Normal Inspection, Full Range of Motion Extremities: Normal Inspection, Normal Range of Motion, Non-Tender, No Pedal Edema, Normal Capillary Refill Skin: Warm, Dry, Intact Neurological: No New Focal Deficit Psy/Mental Status: Alert, Normal Affect, Normal Mood - Problem List & Annotations (1) Reactive airway disease with acute exacerbation SNOMED Code(s): 800346357566 Code(s): J45.901 - UNSPECIFIED ASTHMA WITH (ACUTE) EXACERBATION Status: Acute Priority: High Current Visit: Yes Onset Date: ~05/28/19 Qualifiers: Asthma severity: moderate Asthma persistence: persistent Qualified Code(s ): J45.41 - Moderate persistent asthma with (acute) exacerbation Annotation/Comment:: Patient has been aggressively treated with steroids and antibiotics but continues the saturating into the 80s I will keep him overnight in an attempt to have him see pulmonology as an outpatient as soon as possible. I was not able to transfer patient to [place] this weekend due to lack of pulmonoligist superintendent construction this past weekend. I spoke to Dr. Hopper today and he requested a referral. Referral details for outpatient listed in Plan. (2) Sleep apnea SNOMED Code(s): 96831339 Code(s): G47.30 - SLEEP APNEA, UNSPECIFIED Status: Acute Priority: High Current Visit: Yes Qualifiers: Sleep apnea type: other type Qualified Code(s): G47.39 - Other sleep apnea Annotation/Comment:: Note no additional O2 required with patient using CPAP as above. Weight loss in moderation advisable as above. (3) Hypertension SNOMED Code(s): 97967799 Code(s): I10 - ESSENTIAL (PRIMARY) HYPERTENSION Status: Chronic Priority : Medium Current Visit: Yes Qualifiers: Hypertension type: essential hypertension Qualified Code(s): I10 - Essential (primary) hypertension Annotation/Comment:: Blood pressure remains somewhat elevated during initial phases of hospitalization. increase IV Lasix therapy and additional low-dose oral lisinopril was initiated on 06/13 Continue to observe closely during this hospitalization and by regular providers on an outpatient basis. Refer patient to outpatient pulomary hypertension clinic - Problem List Review Problem List Initiated/Reviewed/Updated: Yes - My Orders Last 24 Hours: My Active Orders 06/14/19 11:48 Chest 2V [CR] Stat 06/14/19 12:00 methylPREDNISolone Sod Succ [Solu-MEDROL] 60 mg IV QID 06/14/19 13:00 Azithromycin [Zithromax] 500 mg PO DAILY@1300 06/14/19 13:20 Vital Signs [RC] QID - Assessment Assessment:: As above - Plan Plan:: At this time we will start reducing the prednisone and changing him to oral medications so that he could be discharged and follow-up by pulmonary medicine back 06-16-2019 Pulmonary Hypertension outpatient order- Dr. Stephenson [facility]. Spoke to Dr. Hopper grain cleaner at [place]. He asked for an outpatient referral. ; Increased lasix IV. Patient to ambulate with oxygen 2L [place] to keep sats above 90. May wean if patients sats are above 90.
[2019-06-15] MEDS: methylPREDNISolone Sodium Succinate 40 MG/1 ML SDV IVPUSH SCH ×2 (12:28→17:33)
[2019-06-15] MEDS: Tiotropium Inhaler 18 MCG Inhalation Powder Cap Kit of 5 INH SCH (12:28)
[2019-06-15] MEDS: Azithromycin 250 MG Tab PO SCH (12:29)
[2019-06-15] MEDS: Umeclidinium Brm/Vilanterol Tr 62.5-25 MCG 7 Puff Inhaler IH SCH (19:50)
[2019-06-15] MEDS: atorvaSTATin 10 MG Tab PO SCH (19:52)
[2019-06-15] MEDS: Melatonin 3 MG Tab PO SCH (19:53)
[2019-06-16] MEDS: Albuterol/Ipratropium 3.0-0.5 MG/3 ML Neb Soln NEB SCH ×6 (00:03→20:19)
[2019-06-16] MEDS: methylPREDNISolone Sodium Succinate 40 MG/1 ML SDV IVPUSH SCH ×4 (00:04→17:38)
[2019-06-16] MEDS: Sodium Chloride 0.9% 10 ML Syringe FLUSH PRN ×3 (00:04→17:41)
[2019-06-16 07:37] LABS: CHLORIDE,CL 104 mmol/L (98-107); SODIUM,NA 141 mmol/L (136-145)
[2019-06-16] MEDS: Pantoprazole 40 MG Vial IVPUSH SCH (07:42)
[2019-06-16] MEDS: Furosemide 20 MG/2 ML VIAL IVPUSH SCH (07:42)
[2019-06-16] MEDS: Cholecalciferol (Vitamin D3) 25 MCG Tab PO SCH (07:43)
[2019-06-16] MEDS: Enoxaparin 40 MG/0.4 ML Syringe SUBCUT SCH (07:43)
[2019-06-16] MEDS: Doxycycline 100 MG Cap PO SCH ×2 (07:43→20:20)
[2019-06-16] MEDS: Cetirizine 10 MG Tab PO SCH (07:43)
[2019-06-16] MEDS: Metoprolol Tartrate 50 MG Tab PO SCH ×2 (07:44→20:20)
[2019-06-16] MEDS: guaiFENesin 600 MG Tab.ER PO SCH ×2 (07:44→17:39)
[2019-06-16] MEDS: Lisinopril 10 MG Tab PO SCH (07:44)
[2019-06-16] MEDS: Theophylline 300 MG Tab.ER PO SCH ×2 (07:44→17:39)
[2019-06-16] MEDS: Tiotropium Inhaler 18 MCG Inhalation Powder Cap Kit of 5 INH SCH (07:45)
[2019-06-16] MEDS: Aspirin 81 MG Tab.EC PO SCH (07:45)
[2019-06-16] MEDS: Magnesium Oxide 400 MG Tab PO SCH (07:45)
[2019-06-16 11:27] LABS: O2 DELIVERY DEVICE ROOM AIR; PCO2 ARTERIAL 39 mmHG (35-45)
[2019-06-16 11:28] LABS: BICARBONATE,ARTERIAL 27.1 mmol/L (22-26); PO2 ARTERIAL 61 mmHG (80-105)
[2019-06-16 11:29] LABS: BASE EXCESS ARTERIAL 3 mmol/L (-2-3); O2 SATURATION ARTERIAL 92 % (95-98)
[2019-06-16] MEDS: Azithromycin 250 MG Tab PO SCH (13:20)
[2019-06-16] MEDS: Furosemide 40 MG/4 ML VIAL IVPUSH SCH (13:20)
[2019-06-16] MEDS ORDERED: Furosemide 20 MG/2 ML VIAL IVPUSH SCH (18:00)
[2019-06-16] MEDS: Umeclidinium Brm/Vilanterol Tr 62.5-25 MCG 7 Puff Inhaler IH SCH (20:19)
[2019-06-16] MEDS: atorvaSTATin 10 MG Tab PO SCH (20:19)
[2019-06-16] MEDS: Melatonin 3 MG Tab PO SCH (20:21)
[2019-06-17] MEDS: methylPREDNISolone Sodium Succinate 40 MG/1 ML SDV IVPUSH SCH (01:05)
[2019-06-17] MEDS: Albuterol/Ipratropium 3.0-0.5 MG/3 ML Neb Soln NEB SCH ×4 (01:10→11:53)
[2019-06-17] MEDS ORDERED: predniSONE 20 MG Tab PO SCH (01:15)
--- NOTE | 2019-06-17 02:32 | PCM.PN ---
- General Info Date of Service: 06/16/19 Admission Dx/Problem (Free Text): Patient continues to desaturate with ambulation at this time we will attempt to ambulate him with oxygen I feel that we need to keep him until his saturations improved since he is going into the low 80s with minimal ambulator ambulation we will refer him to pulmonology as soon as possible for evaluation and treatment when patient is resting his saturations are in the high 90s but with minimal ambulation it drops into the 80s. Subjective Update: Patient feeling better ambulating approximately 300 feet but gets tired and saturations go down to 89% at this time we will refer patient to pulmonology we will go ahead and taper his prednisone down and start by mouth medications Functional Status: Reports: Ambulating - Review of Systems General: Reports: No Symptoms HEENT: Reports: No Symptoms Pulmonary: Reports: Shortness of Breath, Cough Cardiovascular: Reports: No Symptoms Gastrointestinal: Reports: No Symptoms Genitourinary: Reports: No Symptoms Musculoskeletal: Reports: No Symptoms Skin: Reports: No Symptoms Neurological: Reports: No Symptoms Psychiatric: Reports: No Symptoms - Patient Data Vitals - Most Recent: Last Vital Signs Temp 98.9 F 06/16/19 19:56 Pulse 98 06/16/19 20:20 Resp 17 06/16/19 19:56 BP 121/87 06/16/19 20:20 Pulse Ox 91 L 06/16/19 19:56 Weight - Most Recent: 362 lb 15.999 oz I&O - Last 24 Hours: Intake & Output 06/16/19 06/16/19 06/17/19 14:59 22:59 06:59 Intake Total 850 650 Output Total 1100 3050 Balance -250 -2400 Lab Results Last 24 Hours: Laboratory Results - last 24 hr 06/16/19 06/16/19 06/16/19 Range/Units 07:05 07:05 11:20 WBC 13.2 H (4.0-10.2) K/uL RBC 5.20 (4.33-5.41) M/uL Hgb 16.1 (13.1-16.8) g/dL Hct 49.2 H (39.0-49.0) % MCV 94.6 (84.0-98.0) fL MCH 31.0 (28.2-33.3) pg MCHC 32.7 (31.7-36.0) g/dL RDW 14.2 H (11.2-14.1) % Plt Count 209 (150-350) K/uL Neut % (Auto) 89.5 H (45.0-80.0) % Lymph % (Auto) 3.4 L (10.0-50.0) % [place] % (Auto) 6.9 (2.0-14.0) % Eos % (Auto) 0.0 (0.0-5.0) % Baso % (Auto) 0.2 (0.0-2.0) % Neut # (Auto) 11.82 H (1.40-7.00) K/uL Lymph # (Auto) 0.45 L (0.50-3.50) K/uL [place] # (Auto) 0.91 (0.00-1.00) K/uL Eos # (Auto) 0.00 (0.00-0.50) K/uL Baso # (Auto) 0.02 (0.00-0.20) K/uL ABG pH 7.45 (7.35-7.45) ABG pCO2 39 (35-45) mmHG ABG pO2 61 L* (80-105) mmHG ABG HCO3 27.1 H (22-26) mmol/L ABG Total CO2 28 H (23-27) mmol/L ABG O2 Saturation 92 L (95-98) % ABG Base Excess 3 (-2-3) mmol/L O2 Delivery Device Room air Sodium 141 (136-145) mmol/L Potassium 4.3 (3.5-5.1) mmol/L Chloride 104 (98-107) mmol/L Carbon Dioxide 26.8 (21.0-32.0) mmol/L BUN 33 H (7-18) mg/dL Creatinine 0.98 (0.51-1.17) mg/dL Est Cr Clr Drug Dosing 98.18 mL/min Estimated GFR (MDRD) > 60 mL/min Glucose 144 H (74-106) mg/dL Calcium 8.8 (8.5-10.1) mg/dL [place] Results Last 24 Hours: Microbiology 06/13/19 12:09 Gram Stain - Final Sputum - Induced Sputum Culture - Final Normal [place] Med Orders - Current: Current Medications Acetaminophen (Tylenol) 650 mg PO Q4H PRN PRN Reason: Pain (Mild 1-3)/fever Albuterol (Proventil Neb Soln) 2.5 mg NEB Q2H PRN PRN Reason: Shortness of Breath Last Admin: 06/11/19 17:27 Dose: 2.5 mg Albuterol/Ipratropium (Duoneb 3.0-0.5 Mg/3 Ml) 3 ml NEB Q4HRRT [facility] Last Admin: 06/17/19 01:10 Dose: 3 ml Aspirin (Halfprin) 81 mg PO DAILY [facility] Last Admin: 06/16/19 07:45 Dose: 81 mg Atorvastatin Calcium (Lipitor) 10 mg PO BEDTIME [facility] Last Admin: 06/16/19 20:19 Dose: 10 mg Azithromycin (Zithromax) 500 mg PO DAILY@1300 [facility] Last Admin: 06/16/19 13:20 Dose: 500 mg Cetirizine HCl (Zyrtec) 10 mg PO DAILY [facility] Last Admin: 06/16/19 07:43 Dose: 10 mg Cholecalciferol (Vitamin D3) 50 mcg PO DAILY [facility] Last Admin: 06/16/19 07:43 Dose: 50 mcg Doxycycline Hyclate (Vibramycin) 100 mg PO Q12HR [facility] Last Admin: 06/16/19 20:20 Dose: 100 mg Enoxaparin Sodium (Lovenox) 40 mg SUBCUT DAILY [facility] Last Admin: 06/16/19 07:43 Dose: 40 mg Furosemide (Lasix) 40 mg IVPUSH BID@08,14 [facility] Last Admin: 06/16/19 13:20 Dose: 40 mg Guaifenesin (Mucinex) 1,200 mg PO BID [facility] Last Admin: 06/16/19 17:39 Dose: 1,200 mg Ibuprofen (Motrin) 600 mg PO Q6H PRN PRN Reason: Pain (mild 1-3) Lisinopril (Prinivil) 10 mg PO DAILY [facility] Last Admin: 06/16/19 07:44 Dose: 10 mg Magnesium Oxide (Magnesium Oxide) 800 mg PO DAILY [facility] Last Admin: 06/16/19 07:45 Dose: 800 mg Melatonin (Melatonin) 6 mg PO BEDTIME [facility] Last Admin: 06/16/19 20:21 Dose: 6 mg Metoprolol Tartrate (Lopressor) 100 mg PO 0800,1999 [facility] Last Admin: 06/16/19 20:20 Dose: 100 mg Morphine Sulfate (Morphine) 2 mg .XX Q2H PRN PRN Reason: Dyspnea Ondansetron HCl (Zofran Odt) 4 mg PO Q6H PRN PRN Reason: Nausea/Vomiting Ondansetron HCl (Zofran) 4 mg IVPUSH Q6H PRN PRN Reason: Nausea/Vomiting Pantoprazole Sodium (Protonix Iv) 40 mg IVPUSH DAILY [facility] Last Admin: 06/16/19 07:42 Dose: 40 mg Prednisone (Prednisone) 40 mg PO Q6HR [facility] Last Admin: 06/17/19 01:10 Dose: 40 mg Sodium Chloride (Saline Flush) 10 ml FLUSH ASDIRECTED PRN PRN Reason: Keep Vein Open Last Admin: 06/16/19 17:41 Dose: 10 ml Sodium Chloride (Sodium Chloride 0.9%) 3 ml INH Q2H PRN PRN Reason: SHORTNESS OF BREATH Theophylline (Theophylline Anhydrous) 300 mg PO BID [facility] Last Admin: 06/16/19 17:39 Dose: 300 mg Tiotropium [place] (Spiriva Handihaler) 18 mcg INH DAILY [facility] Last Admin: 06/16/19 07:45 Dose: 18 mcg Umeclidinium/Vilanterol (Anoro Ellipta 62.5-25 Mcg) 0 mcg IH DAILY@1999 [facility] Last Admin: 06/16/19 20:19 Dose: 1 puff Discontinued Medications Albuterol/Ipratropium (Duoneb 3.0-0.5 Mg/3 Ml) 3 ml NEB ONETIME ONE Stop: 06/11/19 13:38 Last Admin: 06/11/19 13:54 Dose: 3 ml Atorvastatin Calcium (Lipitor) 10 mg PO DAILY [facility] Last Admin: 06/12/19 07:46 Dose: 10 mg Budesonide (Pulmicort) 0.5 mg INH DAILY [facility] Last Admin: 06/12/19 07:47 Dose: 0.5 mg Budesonide (Pulmicort) 0.5 mg INH BIDRT [facility] Last Admin: 06/15/19 07:17 Dose: 0.5 mg Furosemide (Lasix) 20 mg IVPUSH ONETIME ONE Stop: 06/11/19 17:34 Last Admin: 06/11/19 18:01 Dose: 20 mg Furosemide (Lasix) 20 mg IVPUSH DAILY [facility] Last Admin: 06/13/19 07:32 Dose: 20 mg Furosemide (Lasix) 20 mg IVPUSH BID [facility] Last Admin: 06/16/19 07:42 Dose: 20 mg Furosemide (Lasix) 40 mg IVPUSH BID [facility] Azithromycin 500 mg/ Sodium (Chloride) 250 mls @ 250 mls/hr IV Q24H [facility] Last Admin: 06/13/19 16:07 Dose: 250 mls/hr Magnesium Sulfate 2 gm/ Premix 50 mls @ 50 mls/hr IV DAILY [facility] Last Admin: 06/13/19 07:32 Dose: 50 mls/hr Iopamidol (Isovue-300 (61%)) 100 ml IVPUSH ONETIME ONE Stop: 06/11/19 14:53 Last Admin: 06/11/19 15:52 Dose: 100 ml Methylprednisolone Sodium Succinate (Solu-Medrol) 125 mg IVPUSH ONETIME ONE Stop: 06/11/19 13:38 Last Admin: 06/11/19 13:54 Dose: 125 mg Methylprednisolone Sodium Succinate (Solu-Medrol) 125 mg IVPUSH DAILY [facility] Last Admin: 06/14/19 07:40 Dose: 125 mg Methylprednisolone Sodium Succinate (Solu-Medrol) 125 mg IVPUSH ONETIME ONE Stop: 06/11/19 22:01 Last Admin: 06/11/19 21:33 Dose: 125 mg Methylprednisolone Sodium Succinate (Solu-Medrol) 60 mg IV QID [facility] Last Admin: 06/15/19 12:34 Dose: Not Given Methylprednisolone Sodium Succinate (Solu-Medrol) 40 mg IVPUSH Q6H [facility] Stop: 06/17/19 01:00 Last Admin: 06/17/19 01:05 Dose: Not Given Metoprolol Tartrate (Lopressor) 100 mg PO BID [facility] Last Admin: 06/12/19 17:00 Dose: 100 mg - Exam Quality Assessment: Supplemental Oxygen General: Alert HEENT: Pupils Equal, Pupils Reactive, EOMI, Mucous Membr. Moist/[place] Neck: Supple Lungs: Clear to Auscultation, Wheezing Cardiovascular: Regular Rate, Regular Rhythm GI/Abdominal Exam: Normal Bowel Sounds, Soft, Non-Tender, No Organomegaly, No Distention, No Abnormal Bruit, No Mass, Pelvis Stable (Male) Exam: Deferred Back Exam: Normal Inspection Extremities: Normal Inspection, Normal Range of Motion, Non-Tender, No Pedal Edema, Normal Capillary Refill Skin: Warm, Dry, Intact Neurological: No New Focal Deficit Psy/Mental Status: Alert, Normal Affect, Normal Mood - Problem List & Annotations (1) Reactive airway disease with acute exacerbation SNOMED Code(s): 466119499737 Code(s): J45.901 - UNSPECIFIED ASTHMA WITH (ACUTE) EXACERBATION Status: Acute Priority: High Current Visit: Yes Onset Date: ~05/28/19 Qualifiers: Asthma severity: moderate Asthma persistence: persistent Qualified Code(s ): J45.41 - Moderate persistent asthma with (acute) exacerbation Annotation/Comment:: Patient has been aggressively treated with steroids and antibiotics but continues the saturating into the 80s I will keep him overnight in an attempt to have him see pulmonology as an outpatient as soon as possible. I was not able to transfer patient to [place] this weekend due to lack of pulmonoligist travel trailer components assembler this past weekend. I spoke to Dr. Hopper today and he requested a referral. Referral details for outpatient listed in Plan. (2) Sleep apnea SNOMED Code(s): 18543175 Code(s): G47.30 - SLEEP APNEA, UNSPECIFIED Status: Acute Priority: High Current Visit: Yes Qualifiers: Sleep apnea type: other type Qualified Code(s): G47.39 - Other sleep apnea Annotation/Comment:: Note no additional O2 required with patient using CPAP as above. Weight loss in moderation advisable as above. (3) Hypertension SNOMED Code(s): 41846697 Code(s): I10 - ESSENTIAL (PRIMARY) HYPERTENSION Status: Chronic Priority : Medium Current Visit: Yes Qualifiers: Hypertension type: essential hypertension Qualified Code(s): I10 - Essential (primary) hypertension Annotation/Comment:: Blood pressure remains somewhat elevated during initial phases of hospitalization. increase IV Lasix therapy and additional low-dose oral lisinopril was initiated on 06/13 Continue to observe closely during this hospitalization and by regular providers on an outpatient basis. Refer patient to outpatient pulomary hypertension clinic - Problem List Review Problem List Initiated/Reviewed/Updated: Yes - My Orders Last 24 Hours: My Active Orders 06/16/19 10:55 RT PFT Complete [RC] Click to Edit 06/16/19 11:16 Communication Order [RC] STAT 06/16/19 11:18 Ambulate [RC] ASDIRECTED 06/16/19 11:20 Consult to Physical Therapy [PT Evaluation and Treatment] [CONS] Routine 06/16/19 14:00 Furosemide [Lasix] 40 mg IVPUSH BID@,14 06/17/19 01:15 predniSONE 40 mg PO Q6HR - Assessment Assessment:: As above - Plan Plan:: At this time we will start reducing the prednisone and changing him to oral medications so that he could be discharged and follow-up by pulmonary medicine back 06-16-2019 Pulmonary Hypertension outpatient order- Dr. Stephenson [facility]. Spoke to Dr. Hopper general operations agent at [place]. He asked for an outpatient referral. ; Increased lasix IV. Patient to ambulate with oxygen 2L NC to keep sats above 90. May wean if patients sats are above 90.
[2019-06-17] MEDS: predniSONE 20 MG Tab PO SCH ×2 (05:03→11:50)
[2019-06-17] MEDS: Pantoprazole 40 MG Vial IVPUSH SCH (07:57)
[2019-06-17] MEDS: Enoxaparin 40 MG/0.4 ML Syringe SUBCUT SCH (07:58)
[2019-06-17] MEDS: Furosemide 40 MG/4 ML VIAL IVPUSH SCH (07:58)
[2019-06-17] MEDS: Magnesium Oxide 400 MG Tab PO SCH (07:59)
[2019-06-17] MEDS: Lisinopril 10 MG Tab PO SCH (08:00)
[2019-06-17] MEDS: Doxycycline 100 MG Cap PO SCH (08:00)
[2019-06-17] MEDS: Theophylline 300 MG Tab.ER PO SCH (08:00)
[2019-06-17] MEDS: guaiFENesin 600 MG Tab.ER PO SCH (08:01)
[2019-06-17] MEDS: Aspirin 81 MG Tab.EC PO SCH (08:02)
[2019-06-17] MEDS: Cetirizine 10 MG Tab PO SCH (08:02)
[2019-06-17] MEDS: Cholecalciferol (Vitamin D3) 25 MCG Tab PO SCH (08:02)
[2019-06-17] MEDS: Metoprolol Tartrate 50 MG Tab PO SCH (08:03)
[2019-06-17] MEDS: Tiotropium Inhaler 18 MCG Inhalation Powder Cap Kit of 5 INH SCH (08:04)
[2019-06-17] MEDS: Sodium Chloride 0.9% 10 ML Syringe FLUSH PRN (08:05)
--- NOTE | 2019-06-17 11:32 | PCM.DCSUM1 ---
Discharge Summary - Hospital Course Free Text/Narrative:: Patient will be sent home today with home oxygen through [facility]. Patient will follow up with primary or myself. Referral has been sent for pulmonary and hypertension clinic per my conversation with [place] mechanical development engineer yesterday. Patient has improved. Saturations on 2L while ambulating are in the 90s. Diagnosis: Stroke: No - Discharge Data Discharge Date: 06/17/19 Discharge Disposition: Home, Self-Care 01 Condition: Good - Referral to Home Health Primary Care Physician: Ciara Iniguez NP - Discharge Diagnosis/Problem(s) (1) Reactive airway disease with acute exacerbation SNOMED Code(s): 049195114182 ICD Code: J45.901 - UNSPECIFIED ASTHMA WITH (ACUTE) EXACERBATION Status: Acute Priority: High Current Visit: Yes Onset Date: ~05/28/19 Problem Details: Outpatient referral for pulmonology and hypertension clinic sent yesterday. Patient in 90's on 2L NC while ambulating. Qualifiers: Asthma severity: moderate Asthma persistence: persistent Qualified Code(s ): J45.41 - Moderate persistent asthma with (acute) exacerbation (2) Sleep apnea SNOMED Code(s): 46353759 ICD Code: G47.30 - SLEEP APNEA, UNSPECIFIED Status: Acute Priority: High Current Visit: Yes Problem Details: Stable Qualifiers: Sleep apnea type: other type Qualified Code(s): G47.39 - Other sleep apnea (3) Hypertension SNOMED Code(s): 12577035 ICD Code: I10 - ESSENTIAL (PRIMARY) HYPERTENSION Status: Chronic Priority : Medium Current Visit: Yes Problem Details: Refer patient to outpatient pulomary hypertension clinic. Will monitor on outpatient basis. Qualifiers: Hypertension type: essential hypertension Qualified Code(s): I10 - Essential (primary) hypertension - Patient Summary/Data Consults: Consultations 06/16/19 11:20 Consult to Physical Therapy [PT Evaluation and Treatment] [CONS] Routine - Patient Instructions Diet: Usual Diet as Tolerated Activity: As Tolerated Showering/Bathing: May Shower - Discharge Plan *PRESCRIPTION DRUG MONITORING PROGRAM REVIEWED*: Not Applicable *COPY OF PRESCRIPTION DRUG MONITORING REPORT IN PATIENT GRISELDA: Not Applicable Prescriptions/Med Rec: Albuterol [Proventil Neb Soln] 2.5 mg NEB Q2H PRN #1 box PRN Reason: Shortness Of Breath Albuterol/Ipratropium [DuoNeb 3.0-0.5 MG/3 ML] 3 ml NEB Q4HRRT #1 box Doxycycline [Vibramycin] 100 mg PO Q12HR #6 cap Furosemide [Lasix] 40 mg PO BID #60 tablet Lisinopril [Prinivil] 10 mg PO DAILY #30 tablet predniSONE 20 mg PO BID #5 tablet Tiotropium [Spiriva HandiHaler] 18 mcg INH DAILY #30 cap Umeclidinium Brm/Vilanterol Tr [Anoro Ellipta 62.5-25 MCG] 0 mcg IH DAILY@1999 # 1 inhaler Home Medications: Home Meds atorvaSTATin [Lipitor] 20 mg PO BEDTIME 06/02/15 [History] Aspirin [Halfprin] 1 tab PO DAILY 06/11/19 [History] Budesonide [Pulmicort] 2 ml INH DAILY 06/11/19 [History] Cetirizine [ZyrTEC] 1 tab PO DAILY 06/11/19 [History] Cholecalciferol (Vitamin D3) [Vitamin D3] 2 tab PO DAILY 06/11/19 [History] Ipratropium/Albuterol Sulfate [Iprat-Albut 0.5-3(2.5) MG/3 ML] 3 ml INH DAILY [History] Melatonin 6 mg PO BEDTIME 06/11/19 [History] Metoprolol Tartrate 100 mg PO BID 06/11/19 [History] Omeprazole 20 mg PO DAILY 06/11/19 [History] Albuterol [Proventil Neb Soln] 2.5 mg NEB Q2H PRN #1 box 06/17/19 [Rx] Albuterol/Ipratropium [DuoNeb 3.0-0.5 MG/3 ML] 3 ml NEB Q4HRRT #1 box 06/17/19 [ Rx] Doxycycline [Vibramycin] 100 mg PO Q12HR #6 cap 06/17/19 [Rx] Furosemide [Lasix] 40 mg PO BID #60 tablet 06/17/19 [Rx] Lisinopril [Prinivil] 10 mg PO DAILY #30 tablet 06/17/19 [Rx] Tiotropium [Spiriva HandiHaler] 18 mcg INH DAILY #30 cap 06/17/19 [Rx] Umeclidinium Brm/Vilanterol Tr [Anoro Ellipta 62.5-25 MCG] 0 mcg IH DAILY@1999 # 1 inhaler 06/17/19 [Rx] predniSONE 20 mg PO BID #5 tablet 06/17/19 [Rx] Oxygen Therapy Mode: Nasal Cannula Oxygen Flow Rate (L/min): 2 (use when ambulating) Maintain SpO2% greater than: 90 Patient Handouts: Chronic Obstructive Pulmonary Disease Exacerbation, Azithromycin for infusion, Dextromethorphan; Guaifenesin capsules and ER tablets , Heart Failure, [id number], Doxylamine tablets Forms: ED Department Discharge Referrals: Ciara Iniguez NP [Primary Care Provider] - (Patient to follow up with PCP on Sunday for post hospital follow up and BMP lab. Patient to buy a pulse ox reader to monitor saturations ) home oxygen, referral [Other] (Home oxygen referral 2L NC when ambulating to keep saturations above 90% ) - Discharge Summary/Plan Comment DC Time >30 min.: Yes - General Info Date of Service: 06/17/19 - Review of Systems General: Reports: No Symptoms HEENT: Reports: No Symptoms Pulmonary: Reports: Shortness of Breath, Cough Cardiovascular: Reports: Dyspnea on Exertion. Denies: Chest Pain Gastrointestinal: Reports: No Symptoms Genitourinary: Reports: No Symptoms Musculoskeletal: Reports: No Symptoms Skin: Reports: No Symptoms Neurological: Reports: No Symptoms Psychiatric: Reports: No Symptoms - Patient Data Vitals - Most Recent: Last Vital Signs Temp 97.9 F 06/17/19 07:29 Pulse 74 06/17/19 08:03 Resp 20 06/17/19 07:29 BP 132/90 06/17/19 08:03 Pulse Ox 93 L 06/17/19 07:29 Weight - Most Recent: 366 lb 1.6 oz I&O - Last 24 hours: Intake & Output 06/16/19 06/17/19 06/17/19 22:59 06:59 14:59 Intake Total 650 300 400 Output Total 3050 600 2300 Balance -2400 -300 -1900 Lab Results - Last 24 hrs: Laboratory Results - last 24 hr 06/16/19 Range/Units 11:20 ABG pH 7.45 (7.35-7.45) ABG pCO2 39 (35-45) mmHG ABG pO2 61 L* (80-105) mmHG ABG HCO3 27.1 H (22-26) mmol/L ABG Total CO2 28 H (23-27) mmol/L ABG O2 Saturation 92 L (95-98) % ABG Base Excess 3 (-2-3) mmol/L O2 Delivery Device Room air MARQUITA Results - Last 24 hrs: Microbiology 06/13/19 12:09 Gram Stain - Final Sputum - Induced Sputum Culture - Final Normal [place] Med Orders - Current: Current Medications Acetaminophen (Tylenol) 650 mg PO Q4H PRN PRN Reason: Pain (Mild 1-3)/fever Albuterol (Proventil Neb Soln) 2.5 mg NEB Q2H PRN PRN Reason: Shortness of Breath Last Admin: 06/11/19 17:27 Dose: 2.5 mg Albuterol/Ipratropium (Duoneb 3.0-0.5 Mg/3 Ml) 3 ml NEB Q4HRRT [facility] Last Admin: 06/17/19 07:57 Dose: 3 ml Aspirin (Halfprin) 81 mg PO DAILY [facility] Last Admin: 06/17/19 08:02 Dose: 81 mg Atorvastatin Calcium (Lipitor) 10 mg PO BEDTIME [facility] Last Admin: 06/16/19 20:19 Dose: 10 mg Azithromycin (Zithromax) 500 mg PO DAILY@1300 [facility] Last Admin: 06/16/19 13:20 Dose: 500 mg Cetirizine HCl (Zyrtec) 10 mg PO DAILY [facility] Last Admin: 06/17/19 08:02 Dose: 10 mg Cholecalciferol (Vitamin D3) 50 mcg PO DAILY [facility] Last Admin: 06/17/19 08:02 Dose: 50 mcg Doxycycline Hyclate (Vibramycin) 100 mg PO Q12HR [facility] Last Admin: 06/17/19 08:00 Dose: 100 mg Enoxaparin Sodium (Lovenox) 40 mg SUBCUT DAILY [facility] Last Admin: 06/17/19 07:58 Dose: 40 mg Furosemide (Lasix) 40 mg IVPUSH BID@08,14 [facility] Last Admin: 06/17/19 07:58 Dose: 40 mg Guaifenesin (Mucinex) 1,200 mg PO BID [facility] Last Admin: 06/17/19 08:01 Dose: 1,200 mg Ibuprofen (Motrin) 600 mg PO Q6H PRN PRN Reason: Pain (mild 1-3) Lisinopril (Prinivil) 10 mg PO DAILY [facility] Last Admin: 06/17/19 08:00 Dose: 10 mg Magnesium Oxide (Magnesium Oxide) 800 mg PO DAILY [facility] Last Admin: 06/17/19 07:59 Dose: 800 mg Melatonin (Melatonin) 6 mg PO BEDTIME [facility] Last Admin: 06/16/19 20:21 Dose: 6 mg Metoprolol Tartrate (Lopressor) 100 mg PO [facility] Last Admin: 06/17/19 08:03 Dose: 100 mg Morphine Sulfate (Morphine) 2 mg .XX Q2H PRN PRN Reason: Dyspnea Ondansetron HCl (Zofran Odt) 4 mg PO Q6H PRN PRN Reason: Nausea/Vomiting Ondansetron HCl (Zofran) 4 mg IVPUSH Q6H PRN PRN Reason: Nausea/Vomiting Pantoprazole Sodium (Protonix Iv) 40 mg IVPUSH DAILY [facility] Last Admin: 06/17/19 07:57 Dose: 40 mg Prednisone (Prednisone) 40 mg PO Q6H [facility] Last Admin: 06/17/19 05:03 Dose: 40 mg Sodium Chloride (Saline Flush) 10 ml FLUSH ASDIRECTED PRN PRN Reason: Keep Vein Open Last Admin: 06/17/19 08:05 Dose: 10 ml Sodium Chloride (Sodium Chloride 0.9%) 3 ml INH Q2H PRN PRN Reason: SHORTNESS OF BREATH Theophylline (Theophylline Anhydrous) 300 mg PO BID [facility] Last Admin: 06/17/19 08:00 Dose: 300 mg Tiotropium [place] (Spiriva Handihaler) 18 mcg INH DAILY [facility] Last Admin: 06/17/19 08:04 Dose: 18 mcg Umeclidinium/Vilanterol (Anoro Ellipta 62.5-25 Mcg) 0 mcg IH DAILY@1999 [facility] Last Admin: 06/16/19 20:19 Dose: 1 puff Discontinued Medications Albuterol/Ipratropium (Duoneb 3.0-0.5 Mg/3 Ml) 3 ml NEB ONETIME ONE Stop: 06/11/19 13:38 Last Admin: 06/11/19 13:54 Dose: 3 ml Atorvastatin Calcium (Lipitor) 10 mg PO DAILY [facility] Last Admin: 06/12/19 07:46 Dose: 10 mg Budesonide (Pulmicort) 0.5 mg INH DAILY [facility] Last Admin: 06/12/19 07:47 Dose: 0.5 mg Budesonide (Pulmicort) 0.5 mg INH BIDRT [facility] Last Admin: 06/15/19 07:17 Dose: 0.5 mg Furosemide (Lasix) 20 mg IVPUSH ONETIME ONE Stop: 06/11/19 17:34 Last Admin: 06/11/19 18:01 Dose: 20 mg Furosemide (Lasix) 20 mg IVPUSH DAILY [facility] Last Admin: 06/13/19 07:32 Dose: 20 mg Furosemide (Lasix) 20 mg IVPUSH BID [facility] Last Admin: 06/16/19 07:42 Dose: 20 mg Furosemide (Lasix) 40 mg IVPUSH BID [facility] Azithromycin 500 mg/ Sodium (Chloride) 250 mls @ 250 mls/hr IV Q24H [facility] Last Admin: 06/13/19 16:07 Dose: 250 mls/hr Magnesium Sulfate 2 gm/ Premix 50 mls @ 50 mls/hr IV DAILY [facility] Last Admin: 06/13/19 07:32 Dose: 50 mls/hr Iopamidol (Isovue-300 (61%)) 100 ml IVPUSH ONETIME ONE Stop: 06/11/19 14:53 Last Admin: 06/11/19 15:52 Dose: 100 ml Methylprednisolone Sodium Succinate (Solu-Medrol) 125 mg IVPUSH ONETIME ONE Stop: 06/11/19 13:38 Last Admin: 06/11/19 13:54 Dose: 125 mg Methylprednisolone Sodium Succinate (Solu-Medrol) 125 mg IVPUSH DAILY [facility] Last Admin: 06/14/19 07:40 Dose: 125 mg Methylprednisolone Sodium Succinate (Solu-Medrol) 125 mg IVPUSH ONETIME ONE Stop: 06/11/19 22:01 Last Admin: 06/11/19 21:33 Dose: 125 mg Methylprednisolone Sodium Succinate (Solu-Medrol) 60 mg IV QID [facility] Last Admin: 06/15/19 12:34 Dose: Not Given Methylprednisolone Sodium Succinate (Solu-Medrol) 40 mg IVPUSH Q6H [facility] Stop: 06/17/19 01:00 Last Admin: 06/17/19 01:05 Dose: Not Given Metoprolol Tartrate (Lopressor) 100 mg PO BID [facility] Last Admin: 06/12/19 17:00 Dose: 100 mg Prednisone (Prednisone) 40 mg PO Q6HR [facility] Last Admin: 06/17/19 01:10 Dose: 40 mg - Exam General: Reports: Alert, Oriented HEENT: Reports: Pupils Equal, Pupils Reactive, EOMI, Mucous Membr. Moist/[place] Neck: Reports: Supple Lungs: Reports: Decreased Breath Sounds (bilaterally ), Wheezing. Denies: Crackles, Rales, Rhonchi Cardiovascular: Reports: Regular Rate, Regular Rhythm GI/Abdominal Exam: Normal Bowel Sounds, Soft, Non-Tender, No Organomegaly, No Distention, No Abnormal Bruit, No Mass, Pelvis Stable (Male) Exam: Deferred Rectal (Males) Exam: Deferred Back Exam: Reports: Normal Inspection, Full Range of Motion Extremities: Pedal Edema (+3) Skin: Reports: Warm, Dry, Intact Neurological: Reports: No New Focal Deficit Psy/Mental Status: Reports: Alert, Normal Affect, Normal Mood
[2019-06-17 11:59] VITALS: BP 117/78; PULSE 72
[2019-06-17] MEDS: Azithromycin 250 MG Tab PO SCH (12:00)
== END 2019-06-17 13:25 | disposition home or self-care (01) | DRG 141 ==
LOC: LL.ED 13:34 → LL.MS 16:34
PROVIDERS: ADMIT Emergency Medicine; ATTEND Family Medicine
DX: J45.51 Severe persistent asthma with (acute) exacerbation (principal); J44.9 Chronic obstructive pulmonary disease, unspecified; G47.39 Other sleep apnea; E78.00 Pure hypercholesterolemia, unspecified; I11.0 Hypertensive heart disease with heart failure; I50.9 Heart failure, unspecified; I44.0 Atrioventricular block, first degree; K21.9 Gastro-esophageal reflux disease without esophagitis; M19.90 Unspecified osteoarthritis, unspecified site; I27.20 Pulmonary hypertension, unspecified; G89.29 Other chronic pain; M79.672 Pain in left foot; E78.5 Hyperlipidemia, unspecified; E66.01 Morbid (severe) obesity due to excess calories; M15.9 Polyosteoarthritis, unspecified; Z79.82 Long term (current) use of aspirin; Z79.52 Long term (current) use of systemic steroids; Z79.899 Other long term (current) drug therapy; Z88.8 Allergy status to other drugs, medicaments and biological substances; Z86.718 Personal history of other venous thrombosis and embolism; Z87.891 Personal history of nicotine dependence; Z68.43 Body mass index [BMI] 50.0-59.9, adult; R05 Cough; I10 Essential (primary) hypertension; R06.00 Dyspnea, unspecified
CPT/HCPCS: 36415; 36600; 71046; 71260; 80048; 80053; 82550; 82553; 82803; 83036; 83605; 83735; 83880; 84484; 85025; 85379; 86140; 86738; 87070; 87205; 93005; 94640; 94761; 96374; 97161-GP; 99285-25; A9270-GY; C9113; J0456; J1650; J1940; J2920; J2930; J3475; J7050; J7613-GY; J7620-GY; Q9967

== ENCOUNTER 2019-09-17 11:35 | Emergency (ER) | payer BC ==
[2019-09-17] MEDS ORDERED: methylPREDNISolone Sodium Succinate 125 MG/2 ML SDV IVPUSH ONE (11:39)
[2019-09-17] MEDS ORDERED: Albuterol/Ipratropium 3.0-0.5 MG/3 ML Neb Soln ONE ×4 (11:53→12:37)
[2019-09-17] MEDS ORDERED: Metoprolol Tartrate 5 MG/5 ML SDV IVPUSH ONE (11:59)
[2019-09-17] MEDS ORDERED: Metoprolol Tartrate 50 MG Tab PO ONE ×2 (12:00)
[2019-09-17] MEDS ORDERED: Metoprolol Tartrate 5 MG/5 ML SDV ONE ×4 (12:02→12:45)
[2019-09-17 12:11] LABS: CHLORIDE,CL 102 mmol/L (98-107); SODIUM,NA 144 mmol/L (136-145)
[2019-09-17 12:14] LABS: O2 DELIVERY DEVICE NON REBR MASK
[2019-09-17 12:16] LABS: BASE EXCESS ARTERIAL 12 mmol/L (-2-3); BICARBONATE,ARTERIAL 39.2 mmol/L (22-26); O2 SATURATION ARTERIAL 100 % (95-98); PCO2 ARTERIAL 84 mmHG (35-45); PO2 ARTERIAL 273 mmHG (80-105)
[2019-09-17] MEDS ORDERED: LORazepam 2 MG/ML SDV ONE ×4 (12:37→13:30)
[2019-09-17 13:03] LABS: O2 DELIVERY DEVICE BIPAP
[2019-09-17 13:06] LABS: PCO2 ARTERIAL 82 mmHG (35-45)
[2019-09-17 13:07] LABS: BASE EXCESS ARTERIAL 14 mmol/L (-2-3); BICARBONATE,ARTERIAL 40.2 mmol/L (22-26); O2 SATURATION ARTERIAL 100 % (95-98); PO2 ARTERIAL 235 mmHG (80-105)
[2019-09-17] MEDS ORDERED: Sodium Chloride 0.9% Inhalation Soln 3 ML Neb INH ONE (13:15)
[2019-09-17] MEDS ORDERED: Racepinephrine 2.25% 0.5 ML Neb Soln INH ONE (13:15)
--- NOTE | 2019-09-17 15:09 | EDM.PDOC ---
ED HPI GENERAL MEDICAL PROBLEM - General Chief Complaint: Respiratory Problem Stated Complaint: Respiratory distress Time Seen by Provider: 09/17/19 11:36 Source of Information: Reports: Patient History Limitations: Reports: No Limitations - History of Present Illness INITIAL COMMENTS - FREE TEXT/NARRATIVE: Patient arrives via EMS with complaint of SOB. At time of local EMS intercept with another EMS provider, patient on O2 with sats in mid 80s. O2 via NRB mask initiated at 10L and O2 sats approached 100%. Patient accompanied by son. 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 He has since had several operative procedures to remove the scar tissue and actually has planned surgery tomorrow for same. This feels like previous episodes where scar tissue built up and caused respiratory difficulties. His son tells us that prior testing shows "nothing wrong with patient's lungs". Patient does have DuoNebs available at home and has been using them. Notes that he has had slowly increasing SOB over the last several days. No specific trigger for this episode per patient other than possible bitter cold weather present recently. Denies fevers/chills. No new pain complaints other than central chest pain at times with increased respiratory effort. No recent illnesses. Denies BEAN/vision change/ sore throat No new cough/sputum production/coughing up of blood No palpitations. Pain in chest does not radiate anywhere. No GI changes such as nausea/emesis/bowel changes No changes/hematuria/UTI complaints. No neuro changes/focal weakness/confusion Is diaphoretic upon arrival, obvious increased effort to breath. 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 Treatments - Related Data Allergies Allergy/AdvReac Type Severity Reaction Status Date / Time apixaban [From Eliquis] Allergy Tachycardia Verified 06/11/19 13:52 rivaroxaban [From Xarelto] Allergy Tachycardia Verified 06/11/19 13:52 Home Meds: Home Meds atorvaSTATin [Lipitor] 20 mg PO BEDTIME 06/02/15 [History] Aspirin [Halfprin] 1 tab PO DAILY 06/11/19 [History] Cetirizine [ZyrTEC] 1 tab PO DAILY 06/11/19 [History] Cholecalciferol (Vitamin D3) [Vitamin D3] 2 tab PO DAILY 06/11/19 [History] Metoprolol Tartrate 100 mg PO BID 06/11/19 [History] Omeprazole 20 mg PO DAILY 06/11/19 [History] Albuterol/Ipratropium [DuoNeb 3.0-0.5 MG/3 ML] 3 ml NEB Q4HRRT #1 box 06/17/19 [ Rx] Furosemide [Lasix] 40 mg PO BID #60 tablet 06/17/19 [Rx] Past Medical History Cardiovascular History: Reports: Blood Clots/VTE/DVT, High Cholesterol, Hypertension, Pulmonary Hypertension Respiratory History: Reports: COPD, Intubation, Previous (due to acute respiratory failure) Other Respiratory History: 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 Gastrointestinal History: Reports: GERD, Other (See Below) (ileus) Musculoskeletal History: Reports: Osteoarthritis Other Musculoskeletal History: C/o pain in the left foot, chronic-pain well managed Endocrine/Metabolic History: Reports: Obesity/BMI 30+ (morbid obesity) - Past Surgical History Other HEENT Surgeries/Procedures: T&A, wisdom teeth removal Social & Family History - Family History Family Medical History: Noncontributory - Tobacco Use Smoking Status *Q: Never Smoker - Caffeine Use Caffeine Use: Reports: Coffee, Soda Other Caffeine Use: pop- 3x/day, coffee 12 cups per day - Recreational Drug Use Recreational Drug Use: No Drug Use in Last 12 Months: No ED ROS GENERAL - Review of Systems Review Of Systems: Comprehensive ROS is negative, except as noted in HPI. ED EXAM, GENERAL - Physical Exam Exam: See Below Exam Limited By: Respiratory Distress (and morbid obesity) General Appearance: Alert, Moderate Distress, Obese Eye Exam: Bilateral Eye: EOMI, PERRL Ears: Hearing Grossly Normal Nose: No: Nasal Flaring Throat/Mouth: Normal Lips, Normal Oropharynx, Normal Voice, Other (using NRB mask). No: Dysphagia, Perioral Cyanosis Head: Atraumatic, Normocephalic Neck: Supple Respiratory/Chest: Respiratory Distress, Decreased Breath Sounds (throughout), Other (no abdominal breathing noted, however respiratory rate upon arrival 32). No: Crackles, Rales, Rhonchi, Wheezing, Stridor Cardiovascular: Normal Peripheral Pulses, No Murmur, Tachycardia Peripheral Pulses: 2+: Radial (L), Radial (R) GI/Abdominal: Soft, Non-Tender, Other (obese) (Male) Exam: Deferred Rectal (Males) Exam: Deferred Back Exam: No: CVA Tenderness (L), CVA Tenderness (R), Muscle Spasm, Paraspinal Tenderness, Vertebral Tenderness Extremities: Non-Tender, Normal Capillary Refill, Other (equal tone/strength) Neurological: Alert, Oriented, Normal Cognition Psychiatric: Anxious Skin Exam: Warm, Diaphoretic, Pallor EKG INTERPRETATION EKG Date: 09/17/19 Time: 12:28 Rhythm: Other (sinus tach) Rate (Beats/Min): 101 Trade: RAD-Right Trade Deviation P-Wave: Present QRS: Normal ST-T: Other (no obvious ST depression/elevation suggestive of ischemia) QT: Normal Comparison: Other: (similar morphology when compared to previous EKG) Course - Orders/Labs/Meds Orders: Active Orders 24 hr Category Date Time Status EKG Documentation Completion [RC] ASDIRECTED Care 09/17/19 12:22 Ordered Chest 1V Frontal [CR] Stat Exams 09/17/19 11:40 Ordered Labs: Laboratory Tests 09/17/19 09/17/19 09/17/19 Range/Units 11:40 11:40 11:40 WBC 7.7 (4.0-10.2) K/uL RBC 5.26 (4.33-5.41) M/uL Hgb 16.4 (13.1-16.8) g/dL Hct 52.2 H (39.0-49.0) % MCV 99.2 H D (84.0-98.0) fL MCH 31.2 (28.2-33.3) pg MCHC 31.4 L (31.7-36.0) g/dL RDW 14.5 H (11.2-14.1) % Plt Count 182 (150-350) K/uL Neut % (Auto) 73.4 (45.0-80.0) % Lymph % (Auto) 14.9 (10.0-50.0) % [place] % (Auto) 8.8 (2.0-14.0) % Eos % (Auto) 2.5 (0.0-5.0) % Baso % (Auto) 0.4 (0.0-2.0) % Neut # (Auto) 5.69 (1.40-7.00) K/uL Lymph # (Auto) 1.15 (0.50-3.50) K/uL [place] # (Auto) 0.68 (0.00-1.00) K/uL Eos # (Auto) 0.19 (0.00-0.50) K/uL Baso # (Auto) 0.03 (0.00-0.20) K/uL D-Dimer, Quantitative 281 (0-400) ng/mL ABG pH (7.35-7.45) ABG pCO2 (35-45) mmHG ABG pO2 (80-105) mmHG ABG HCO3 (22-26) mmol/L ABG Total CO2 (23-27) mmol/L ABG O2 Saturation (95-98) % ABG Base Excess (-2-3) mmol/L O2 Delivery Device Sodium 144 (136-145) mmol/L Potassium 3.9 (3.5-5.1) mmol/L Chloride 102 (98-107) mmol/L Carbon Dioxide 37.0 H D (21.0-32.0) mmol/L BUN 23 H (7-18) mg/dL Creatinine 1.17 (0.51-1.17) mg/dL Est Cr Clr Drug Dosing TNP Estimated GFR (MDRD) > 60 mL/min Glucose 107 H (74-106) mg/dL Lactic Acid (0.4-2.0) mmol/L Calcium 9.1 (8.5-10.1) mg/dL Magnesium 2.0 (1.8-2.4) mg/dL Total Bilirubin 1.7 H (0.2-1.0) mg/dL AST 18 (15-37) U/L ALT 32 (12-78) U/L Alkaline Phosphatase 105 (46-116) IU/L Troponin I 0.000 (0.000-0.056) ng/mL NT-Pro-B Natriuret Pep 135 H (0-125) pg/mL Total Protein 7.2 (6.4-8.2) g/dL Albumin 3.3 L (3.4-5.0) g/dL 09/17/19 09/17/19 09/17/19 Range/Units 11:40 12:08 13:00 WBC (4.0-10.2) K/uL RBC (4.33-5.41) M/uL Hgb (13.1-16.8) g/dL Hct (39.0-49.0) % MCV (84.0-98.0) fL MCH (28.2-33.3) pg MCHC (31.7-36.0) g/dL RDW (11.2-14.1) % Plt Count (150-350) K/uL Neut % (Auto) (45.0-80.0) % Lymph % (Auto) (10.0-50.0) % [place] % (Auto) (2.0-14.0) % Eos % (Auto) (0.0-5.0) % Baso % (Auto) (0.0-2.0) % Neut # (Auto) (1.40-7.00) K/uL Lymph # (Auto) (0.50-3.50) K/uL [place] # (Auto) (0.00-1.00) K/uL Eos # (Auto) (0.00-0.50) K/uL Baso # (Auto) (0.00-0.20) K/uL D-Dimer, Quantitative (0-400) ng/mL ABG pH 7.28 L* 7.30 L (7.35-7.45) ABG pCO2 84 H* 82 H* (35-45) mmHG ABG pO2 273 H 235 H (80-105) mmHG ABG HCO3 39.2 H 40.2 H (22-26) mmol/L ABG Total CO2 42 H 43 H (23-27) mmol/L ABG O2 Saturation 100 H 100 H (95-98) % ABG Base Excess 12 H 14 H (-2-3) mmol/L O2 Delivery Device Non rebr mask Bipap Sodium (136-145) mmol/L Potassium (3.5-5.1) mmol/L Chloride (98-107) mmol/L Carbon Dioxide (21.0-32.0) mmol/L BUN (7-18) mg/dL Creatinine (0.51-1.17) mg/dL Est Cr Clr Drug Dosing Estimated GFR (MDRD) mL/min Glucose (74-106) mg/dL Lactic Acid 1.8 (0.4-2.0) mmol/L Calcium (8.5-10.1) mg/dL Magnesium (1.8-2.4) mg/dL Total Bilirubin (0.2-1.0) mg/dL AST (15-37) U/L ALT (12-78) U/L Alkaline Phosphatase (46-116) IU/L Troponin I (0.000-0.056) ng/mL NT-Pro-B Natriuret Pep (0-125) pg/mL Total Protein (6.4-8.2) g/dL Albumin (3.4-5.0) g/dL Meds: Medications Discontinued Medications Generic Name Dose Route Start Last Admin Trade Name Freq PRN Reason Stop Dose Admin Albuterol/Ipratropium Confirm 09/17/19 11:53 09/17/19 11:59 Duoneb 3.0-0.5 Mg/3 Ml Administered 09/17/19 11:54 3 ml Dose Administration 3 ml .ROUTE .STK-MED ONE Albuterol/Ipratropium Confirm 09/17/19 12:21 Duoneb 3.0-0.5 Mg/3 Ml Administered 09/17/19 12:22 Dose 3 ml .ROUTE .STK-MED ONE Aminophylline 500 mg/ Sodium 120 mls @ 200 mls/hr 09/17/19 12:22 Chloride IV 09/17/19 12:57 ONETIME ONE Lorazepam Confirm 09/17/19 13:08 Ativan Administered 09/17/19 13:09 Dose 2 mg .ROUTE .STK-MED ONE Lorazepam Confirm 09/17/19 13:30 Ativan Administered 09/17/19 13:31 Dose 2 mg .ROUTE .STK-MED ONE Methylprednisolone Sodium Succinate 125 mg 09/17/19 11:39 09/17/19 11:47 Solu-Medrol IVPUSH 09/17/19 11:40 125 mg ONETIME ONE Administration Metoprolol Tartrate 50 mg 09/17/19 12:00 Lopressor PO 09/17/19 12:01 ONETIME ONE Metoprolol Tartrate 100 mg 09/17/19 12:00 09/17/19 12:13 Lopressor PO 09/17/19 12:01 Not Given ONETIME ONE Metoprolol Tartrate 5 mg 09/17/19 11:59 Lopressor IVPUSH 09/17/19 12:00 ONETIME ONE Metoprolol Tartrate Confirm 09/17/19 12:02 Lopressor Administered 09/17/19 12:03 Dose 5 mg .ROUTE .STK-MED ONE Metoprolol Tartrate Confirm 09/17/19 12:45 Lopressor Administered 09/17/19 12:46 Dose 5 mg .ROUTE .STK-MED ONE Racepinephrine 0.5 ml 09/17/19 13:15 S-2 2.25% INH 09/17/19 13:16 ONETIME ONE Sodium Chloride 3 ml 09/17/19 13:15 Sodium Chloride 0.9% INH 09/17/19 13:16 ONETIME ONE - Radiology Interpretation Free Text/Narrative:: Chest xray: No obvious infiltrate. Poor inspiration effort. Atelectasis left lower lung border. - Re-Assessments/Exams Free Text/Narrative Re-Assessment/Exam: See ER flow sheet for specific interventions throughout patient's stay in ER. CBC/Chem/Troponin/BMP/Mg/Lactic acid/DDImer performed and were overall unremarkable. ABG also ordered. pH of 7.27 noted with retention of CO2/good O2 saturation. Stridor initially absent when patient first presented. He had been given a DuoNeb en route to ER. After initial assessment noted and preliminary call placed to ER (contacted ), stridor noted to develop. Stridor consistent with patient's given history of tracheal scar tissue/narrowing. No focal pneumonia noted. No pneumothorax. No wheezing/rhonchi/pulmonary edema identified. DuoNeb ordered and stridor resolved. BiPap ordered. Solumedrol IV administered. Patient discussed with [facility] and . She agreed with interventions that had been performed. Theophylline ordered. Patient had notable improvement with respiratory rate after the above and being placed on Bipap. Respiratory rate improved to 20. Color improved. ABG showed pH of 7.3 Both and teletypewriter installer felt that patient did not require intubation given the improvement noted. Call placed to update on patient's status. He was accepting MD for patient's transfer to . He requested that racemic epi neb be trialed. This was given and patient became more agitated and felt like his breathing was worsening. This reversed after patient received Ativan. Transfer via [facility] arranged given seriousness of medical complaint. He was transferred in much improved condition to . 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
== END 2019-09-17 13:33 ==
LOC: LL.ED 11:35
DX: R06.03 Acute respiratory distress (principal); J39.8 Other specified diseases of upper respiratory tract; I27.20 Pulmonary hypertension, unspecified; E78.00 Pure hypercholesterolemia, unspecified; J44.9 Chronic obstructive pulmonary disease, unspecified; K21.9 Gastro-esophageal reflux disease without esophagitis; M19.90 Unspecified osteoarthritis, unspecified site; E66.01 Morbid (severe) obesity due to excess calories; Z86.718 Personal history of other venous thrombosis and embolism; Z88.8 Allergy status to other drugs, medicaments and biological substances; Z88.1 Allergy status to other antibiotic agents; Z79.82 Long term (current) use of aspirin; Z79.899 Other long term (current) drug therapy
CPT/HCPCS: 36415; 36600; 71045; 80053; 82803; 83605; 83735; 83880; 84484; 85025; 85379; 93005; 96374; 99285; J0280; J2060; J2930; J3490; J7050; J7620-GY